=== PATIENT | female | born 1950 | race Caucasian/White ===

== ENCOUNTER → 2016-04-19 | Outpatient (REF) | payer OTHER ==
[2016-04-19 16:58] LABS: ALBUMIN 4.3 GM/DL (3.2-5.2); ALBUMIN/GLOBULIN RATIO 1.43 (1.00-1.93); ALKALINE PHOSPHATASE 65 U/L (45-117); ALT/SGPT 40 U/L (12-78); ANION GAP 9 MEQ/L (8-16); AST/SGOT 25 U/L (15-37); BILIRUBIN,TOTAL 0.4 MG/DL (0.2-1.0); BLOOD UREA NITROGEN 16 MG/DL (7-18); CALCIUM LEVEL 9.1 MG/DL (8.8-10.2); CARBON DIOXIDE LEVEL 28 MEQ/L (21-32); CHLORIDE LEVEL 103 MEQ/L (98-107); CHOLESTEROL LEVEL 235 MG/DL (<200); CREATININE FOR GFR 0.65 MG/DL (0.55-1.02); GLOMERULAR FILTRATION RATE > 60.0 (>45); GLUCOSE, FASTING 101 MG/DL (80-110); POTASSIUM SERUM 4.3 MEQ/L (3.5-5.1); SODIUM LEVEL 140 MEQ/L (136-145); TOTAL PROTEIN 7.3 GM/DL (6.4-8.2); TRIGLYCERIDES LEVEL 72 MG/DL (<150)
== END ==
LOC: M SFHCCLAY 08:53
PROVIDERS: ATTEND Family Medicine
DX: I10 Essential (primary) hypertension (principal)

== ENCOUNTER → 2016-06-21 | Outpatient (CLI) | payer OTHER ==
--- NOTE | 2016-06-22 03:12 | REP ---
Clinical: Superficial wound. Technique: AP and lateral views of the left tibia / fibula. Findings: Age-related degenerative changes at the knee and ankle joint noted. Small calcaneal heal spur identified. No acute fracture dislocation. Surrounding soft tissues unremarkable. Impression: Age-related degenerative changes. Signed by Jose Keith MD 06/22/2016 03:03 A
== END ==
LOC: M CLY 07:45
PROVIDERS: ATTEND Family Medicine
DX: S81.802D Unspecified open wound, left lower leg, subsequent encounter (principal); M17.10 Unilateral primary osteoarthritis, unspecified knee

== ENCOUNTER → 2016-11-02 | Outpatient (REF) | payer OTHER ==
[2016-11-02 11:56] LABS: ANION GAP 8 MEQ/L (8-16); BLOOD UREA NITROGEN 16 MG/DL (7-18); CALCIUM LEVEL 9.7 MG/DL (8.8-10.2); CARBON DIOXIDE LEVEL 30 MEQ/L (21-32); CHLORIDE LEVEL 102 MEQ/L (98-107); CREATININE FOR GFR 0.58 MG/DL (0.55-1.02); GLOMERULAR FILTRATION RATE > 60.0 (>45); GLUCOSE, FASTING 106 MG/DL (80-110); POTASSIUM SERUM 4.4 MEQ/L (3.5-5.1); SODIUM LEVEL 140 MEQ/L (136-145)
== END ==
LOC: M SFHCCLAY 08:56
PROVIDERS: ATTEND Family Medicine
DX: I10 Essential (primary) hypertension (principal)

== ENCOUNTER → 2017-02-08 | Outpatient (REF) | payer OTHER ==
[2017-02-08 11:43] LABS: ALBUMIN 4.4 GM/DL (3.2-5.2); ALBUMIN/GLOBULIN RATIO 1.29 (1.00-1.93); ALKALINE PHOSPHATASE 62 U/L (45-117); ALT/SGPT 29 U/L (12-78); ANION GAP 8 MEQ/L (8-16); AST/SGOT 22 U/L (7-37); BILIRUBIN,TOTAL 0.6 MG/DL (0.2-1.0); BLOOD UREA NITROGEN 16 MG/DL (7-18); CALCIUM LEVEL 9.5 MG/DL (8.8-10.2); CARBON DIOXIDE LEVEL 30 MEQ/L (21-32); CHLORIDE LEVEL 101 MEQ/L (98-107); CHOLESTEROL LEVEL 279 MG/DL (<200); CREATININE FOR GFR 0.66 MG/DL (0.55-1.02); GLOMERULAR FILTRATION RATE > 60.0 (>45); GLUCOSE, FASTING 96 MG/DL (80-110); POTASSIUM SERUM 3.9 MEQ/L (3.5-5.1); SODIUM LEVEL 139 MEQ/L (136-145); TOTAL PROTEIN 7.8 GM/DL (6.4-8.2); TRIGLYCERIDES LEVEL 105 MG/DL (<150)
== END ==
LOC: M SFHCCLAY 08:33
PROVIDERS: ATTEND Family Medicine
DX: E78.2 Mixed hyperlipidemia (principal); I10 Essential (primary) hypertension

== ENCOUNTER → 2018-01-23 | Outpatient (REF) | payer MEDICARE, MEDICAID ==
[2018-01-23 18:03] LABS: BASO % 0.5 % (0.0-1.0); EOS # 0.1 10^3/uL (0.0-0.50); EOS % 2.6 % (0.0-3.0); HEMATOCRIT 38.1 % (36.0-47.0); HEMOGLOBIN 12.4 g/dl (12.0-15.5); IMMATURE GRANULOCYTE % 0.5 % (0-3.0); LYMPH # 1.7 10^3/uL (1.5-4.5); MEAN CORPUSCULAR HEMOGLOBIN 31.3 pg (27.0-33.0); MEAN CORPUSCULAR HGB CONC 32.5 g/dl (32.0-36.5); MEAN CORPUSCULAR VOLUME 96.2 fl (80.0-96.0); MONO # 0.5 10^3/uL (0.0-0.8); MONO % 11.3 % (0.0-5.0); NEUTROPHILS # 1.9 10^3/uL (1.8-7.7); NEUTROPHILS % 45.1 % (36.0-66.0); PLATELET COUNT, AUTOMATED 257 10^3/uL (150-450); RED BLOOD COUNT 3.96 10^6/uL (4.00-5.40); RED CELL DISTRIBUTION WIDTH 12.8 % (11.5-14.5); WHITE BLOOD COUNT 4.2 10^3/uL (4.0-10.0)
[2018-01-23 18:11] LABS: ALBUMIN 4.2 GM/DL (3.2-5.2); ALKALINE PHOSPHATASE 68 U/L (45-117); ALT/SGPT 29 U/L (12-78); ANION GAP 8 MEQ/L (8-16); AST/SGOT 18 U/L (7-37); BILIRUBIN,TOTAL 0.4 MG/DL (0.2-1.0); BLOOD UREA NITROGEN 14 MG/DL (7-18); CALCIUM LEVEL 8.8 MG/DL (8.8-10.2); CARBON DIOXIDE LEVEL 28 MEQ/L (21-32); CHLORIDE LEVEL 103 MEQ/L (98-107); CHOLESTEROL LEVEL 263 MG/DL (<200); CHOLESTEROL RISK RATIO 3.506 (<5); CREATININE FOR GFR 0.66 MG/DL (0.55-1.30); GLOMERULAR FILTRATION RATE > 60.0 (>45); GLUCOSE, FASTING 93 MG/DL (70-100); HDL CHOLESTEROL 75 MG/DL (>40); LDL CHOLESTEROL 173 MG/DL (<100); NON-HDL-C 188 MG/DL; POTASSIUM SERUM 4.2 MEQ/L (3.5-5.1); SODIUM LEVEL 139 MEQ/L (136-145); TOTAL PROTEIN 7.2 GM/DL (6.4-8.2); TRIGLYCERIDES LEVEL 76 MG/DL (<150)
== END ==
LOC: M SFHCCLAY 09:29
DX: I10 Essential (primary) hypertension (principal); E78.2 Mixed hyperlipidemia
CPT/HCPCS: 80053

== ENCOUNTER → 2018-11-27 | Outpatient (REF) | payer MEDICARE, MEDICAID ==
[2018-11-27 10:57] LABS: ALBUMIN 4.2 GM/DL (3.2-5.2); ALT/SGPT 33 U/L (12-78); BILIRUBIN,TOTAL 0.5 MG/DL (0.2-1.0); BLOOD UREA NITROGEN 15 MG/DL (7-18); CALCIUM LEVEL 9.5 MG/DL (8.8-10.2); CARBON DIOXIDE LEVEL 30 MEQ/L (21-32); CHLORIDE LEVEL 105 MEQ/L (98-107); CHOLESTEROL LEVEL 227 MG/DL (<200); CHOLESTEROL RISK RATIO 2.802 (<5); GLOMERULAR FILTRATION RATE > 60.0 (>45); GLUCOSE, FASTING 95 MG/DL (70-100); HDL CHOLESTEROL 81 MG/DL (>40); LDL CHOLESTEROL 133 MG/DL (<100); NON-HDL-C 146 MG/DL; POTASSIUM SERUM 4.3 MEQ/L (3.5-5.1); SODIUM LEVEL 141 MEQ/L (136-145); TOTAL PROTEIN 7.3 GM/DL (6.4-8.2); TRIGLYCERIDES LEVEL 63 MG/DL (<150)
== END ==
LOC: M SFHCCLAY 08:53
PROVIDERS: ATTEND Family Medicine
DX: E78.2 Mixed hyperlipidemia (principal)
CPT/HCPCS: 80053; 80061; G0463

== ENCOUNTER → 2019-07-23 | Outpatient (CLI) | payer MEDICARE, MEDICAID ==
--- NOTE | 2019-07-24 01:50 | REP ---
Clinical: Bilateral knee pain. Technique: AP, lateral, bilateral oblique and sunrise views of the right and left knee. Findings: Right knee demonstrates moderate tricompartmental osteoarthritic degenerative changes including subchondral sclerosis, joint space narrowing, and marginal osteophytosis. Lateral view suggest the possibility of small suprapatellar effusion. No acute fracture or dislocation. Left knee demonstrates early moderate tricompartmental osteoarthritic degenerative changes including subchondral sclerosis, joint space narrowing, and marginal early osteophytosis. Findings most pronounced at the patellofemoral joint space on sunrise view. Small suprapatellar effusion cannot be excluded. No acute fracture or dislocation. Impression: Bilateral tricompartmental osteoarthritic degenerative changes (right greater than left). Electronically Signed by Jose Keith MD 07/24/2019 01:41 A
== END ==
LOC: M CLY 14:58
PROVIDERS: ATTEND Family Medicine
DX: M17.0 Bilateral primary osteoarthritis of knee (principal); M25.561 Pain in right knee; M25.562 Pain in left knee
CPT/HCPCS: 73564; G0463

== ENCOUNTER → 2020-07-22 | Outpatient (REF) | payer OTHER, MEDICAID ==
[2020-07-22 17:27] LABS: BASO % 0.7 % (0.0-1.0); EOS # 0.1 10^3/uL (0.0-0.5); EOS % 1.5 % (0.0-3.0); HEMATOCRIT 40.2 % (36.0-47.0); HEMOGLOBIN 12.9 g/dl (12.0-15.5); LYMPH # 1.6 10^3/uL (1.5-5.0); LYMPH % 38.7 % (24.0-44.0); MEAN CORPUSCULAR HEMOGLOBIN 31.3 pg (27.0-33.0); MEAN CORPUSCULAR HGB CONC 32.1 g/dl (32.0-36.5); MEAN CORPUSCULAR VOLUME 97.6 fl (80.0-96.0); MONO # 0.4 10^3/uL (0.0-0.8); MONO % 8.9 % (2.0-8.0); PLATELET COUNT, AUTOMATED 278 10^3/uL (150-450); RED BLOOD COUNT 4.12 10^6/uL (4.00-5.40); WHITE BLOOD COUNT 4.1 10^3/uL (4.0-10.0)
[2020-07-22 17:40] LABS: ALBUMIN 4.3 GM/DL (3.2-5.2); ALT/SGPT 33 U/L (12-78); BILIRUBIN,TOTAL 0.4 MG/DL (0.2-1.0); BLOOD UREA NITROGEN 18 MG/DL (7-18); CALCIUM LEVEL 10.5 MG/DL (8.8-10.2); CARBON DIOXIDE LEVEL 28 MEQ/L (21-32); CHLORIDE LEVEL 104 MEQ/L (98-107); CHOLESTEROL LEVEL 245 MG/DL (<200); CHOLESTEROL RISK RATIO 2.987 (<5); CREATININE FOR GFR 0.61 MG/DL (0.55-1.30); GLOMERULAR FILTRATION RATE > 60.0 (>45); GLUCOSE, FASTING 103 MG/DL (70-100); HDL CHOLESTEROL 82 MG/DL (>40); LDL CHOLESTEROL 148 MG/DL (<100); NON-HDL-C 163 MG/DL; POTASSIUM SERUM 4.4 MEQ/L (3.5-5.1); RHEUMATOID FACTOR QUANT < 10.0 IU/ML (<15.0); SODIUM LEVEL 138 MEQ/L (136-145); TOTAL PROTEIN 7.6 GM/DL (6.4-8.2); TRIGLYCERIDES LEVEL 77 MG/DL (<150)
[2020-07-22 17:44] LABS: VITAMIN B12 LEVEL 727 PG/ML (247-911)
[2020-07-22 17:46] LABS: FOLATE > 24.0 NG/ML (>5.4)
[2020-07-22 18:04] LABS: ERYTHROCYTE SEDIMENTATION RATE 8 mm/hr (0-30)
[2020-07-25 00:07] LABS: ANA (HEP2) Negative (.); CYCLIC CITRULLINATED PEPTIDE 4 units (0-19); Lyme Disease IgG/IgM Antibodie <0.91 ISR (0.00-0.90); Lyme Disease IgM Ab Quantitati <0.80 index (0.00-0.79)
== END ==
LOC: M SFHCCLAY 10:05
PROVIDERS: ATTEND Family Medicine
DX: E78.2 Mixed hyperlipidemia (principal); I10 Essential (primary) hypertension; M25.561 Pain in right knee; M25.562 Pain in left knee; G62.9 Polyneuropathy, unspecified
CPT/HCPCS: 80053; 80061; 82607; 82746; 85025; 85652; 86038; 86140; 86200; 86431; 86617; G0463

== ENCOUNTER 2020-12-24 13:04 | Inpatient (IN) | payer OTHER, MEDICAID ==
[~2020-12-24] VITALS: Ht 167.6 cm; Wt 70.1 kg
[2020-12-24] MEDS ORDERED: REST0.05 (13:15)
--- OUTSIDE RECORDS SUMMARY | 2020-12-24 13:15 | CCD ---
Author Author [facility] Organization [facility] Address Unknown Phone Unavailable Care Team Providers Care Filling Station Attendant Name Role Phone Erika, Sonal STANTONP-C Unavailable Unavailabl e Erika, Sonal STANTONP-C Unavailable Unavailabl e Erika, Brianforeignbruce STANTONP-C Unavailable Unavailabl e Erika, Sonal WOO-C Unavailable Unavailabl e Erika, Sonal STANTONP-C Unavailable Unavailabl e Erika, Yaminibruce STANTONP-C Unavailable Unavailabl e Erika, Brianforeignbruce STANTONP-C Unavailable Unavailabl e Erika, Sonal WOO-C Unavailable Unavailabl e Erika, Sonal STANTONP-C Unavailable Unavailabl e Erika, Sonal STANTONP-C Unavailable Unavailabl e Erika, Sonal MULTANIC Unavailable Unavailabl e Erika, Reginah W Gabi DRAG SAWYER-C Unavailable Unavailabl e Erika, Sonal W Gabi DRAG SAWYER-C Unavailable Unavailabl e Erika, Sonal W Gabi DRAG SAWYER-C Unavailable Unavailabl e Erika, Regmarlon W Gabi DRAG SAWYER-C Unavailable Unavailabl e Erika, Regmarlon W Gabi DRAG SAWYER-C Unavailable Unavailabl e Erika, Regmarlon W Gabi DRAG SAWYER-C Unavailable Unavailabl e Erika, Reginabruce W Gabi DRAG SAWYER-C Unavailable Unavailabl e Erika, Reginabruce W Gabi DRAG SAWYER-C Unavailable Unavailabl e Erika, Reginabruce W Gabi DRAG SAWYER-C Unavailable Unavailabl e Erika, Brianinabruce W Gabi DRAG SAWYER-C Unavailable Unavailabl e Erika, Sonal W Gabi DRAG SAWYER-C Unavailable Unavailabl e Erika, Sonal W Gabi DRAG SAWYER-C Unavailable Unavailabl e Erkia, Sonal W Gabi DRAG SAWYER-C Unavailable Unavailabl e Erika, Sonal W Gabi DRAG SAWYER-C Unavailable Unavailabl e Erika, Regmarlon W Gabi DRAG SAWYER-C Unavailable Unavailabl e Erika, Sonal W Gabi DRAG SAWYER-C Unavailable Unavailabl e Erika, Sonal W Gabi DRAG SAWYER-C Unavailable Unavailabl e Erika, Regmarlon W Gabi DRAG SAWYER-C Unavailable Unavailabl e Erika, Sonal W Gabi DRAG SAWYER-C Unavailable Unavailabl e Erika, Sonal W Gabi DRAG SAWYER-C Unavailable Unavailabl e Erika, Reginabruce W Gabi DRAG SAWYER-C Unavailable Unavailabl e Holguin, Yoly Unavailable Unavailable Holguin, Yoly Unavailable Unavailable Holguin, Yoly Unavailable Unavailable Holguin, Yoly Unavailable Unavailable Holguin, Yoly Unavailable Unavailable Holguin, Yoly Unavailable Unavailable Holguin, Yoly Unavailable Unavailable ARANDA, P TRUNG PA-C Unavailable Unavailable ARANDA, P TRUNG PA-C Unavailable Unavailable ARANDA, P TRUNG PA-C Unavailable Unavailable MANOJ, P TRUNG PA-C Unavailable Unavailable [facility] SH[facility] BLOCK HAND Unavailable Unavailable [facility] BLOCK HAND Unavailable Unavailable SHAH, [facility] MARILEE BLOCK HAND Unavailable Unavailable SHAH, [facility] MARILEE BLOCK HAND Unavailable Unavailable SHAH, [facility] MAR[facility]E BLOCK HAND Unavailable Unavailable SHAH, [facility] MAR[facility]E BLOCK HAND Unavailable Unavailable SHAH, [facility] MARILEE BLOCK HAND Unavailable Unavailable SHAH, [facility] MARILEE BLOCK HAND Unavailable Unavailable SHAH, [facility] MARILEE BLOCK HAND Unavailable Unavailable SHAH, [facility] MARILEE BLOCK HAND Unavailable Unavailable SHAH, [facility] MARILEE BLOCK HAND Unavailable Unavailable SHAH, [facility] MARILEE BLOCK HAND Unavailable Unavailable SHAH, [facility] MARILEE BLOCK HAND Unavailable Unavailable SHAH, [facility] MARILEE BLOCK HAND Unavailable Unavailable SHAH, [facility] MARILEE BLOCK HAND Unavailable Unavailable SHAH, [facility] MARILEE BLOCK HAND Unavailable Unavailable SHAH, [facility] MARILEE BLOCK HAND Unavailable Unavailable SHAH, [facility] MARILEE BLOCK HAND Unavailable Unavailable SHAH, [facility] MARILEE BLOCK HAND Unavailable Unavailable SHAH, [facility] MARILEE BLOCK HAND Unavailable Unavailable SHAH, [facility] MARILEE BLOCK HAND Unavailable Unavailable SHAH, [facility] MARILEE BLOCK HAND Unavailable Unavailable SHAH, [facility] MARILEE BLOCK HAND Unavailable Unavailable SHAH, [facility] MARILEE BLOCK HAND Unavailable Unavailable SHAH, [facility] MARILEE BLOCK HAND Unavailable Unavailable SHAH, [facility] MARILEE BLOCK HAND Unavailable Unavailable SHAH, [facility] MARILEE BLOCK HAND Unavailable Unavailable SHAH, [facility] MARILEE BLOCK HAND Unavailable Unavailable SHAH, [facility] MARILEE BLOCK HAND Unavailable Unavailable SHAH, [facility] MARILEE BLOCK HAND Unavailable Unavailable SHAH, [facility] MARILEE BLOCK HAND Unavailable Unavailable SHAH, [facility] MARILEE BLOCK HAND Unavailable Unavailable SHAH, [facility] MARILEE BLOCK HAND Unavailable Unavailable SHAH, [facility] MARILEE BLOCK HAND Unavailable Unavailable SHAH, [facility] MARILEE BLOCK HAND Unavailable Unavailable SHAH, [facility] MARILEE BLOCK HAND Unavailable Unavailable SHAH, [facility] MARILEE BLOCK HAND Unavailable Unavailable SHAH, [facility] MARILEE BLOCK HAND Unavailable Unavailable SHAH, [facility] MARILEE BLOCK HAND Unavailable Unavailable SHAH, [facility] MARILEE BLOCK HAND Unavailable Unavailable SHAH, [facility] MARILEE BLOCK HAND Unavailable Unavailable SHAH, [facility] MARILEE BLOCK HAND Unavailable Unavailable SHAH, [facility] MARILEE BLOCK HAND Unavailable Unavailable SHAH, [facility] MARILEE BLOCK HAND Unavailable Unavailable SHAH, [facility] MARILEE BLOCK HAND Unavailable Unavailable SAHH, [facility] MARILEE BLOCK HAND Unavailable Unavailable SHAH, [facility] MARILEE BLOCK HAND Unavailable Unavailable SHAH, [facility] MARILEE BLOCK HAND Unavailable Unavailable SHAH, [facility] MARILEE BLOCK HAND Unavailable Unavailable SHAH, [facility] MARILEE BLOCK HAND Unavailable Unavailable SARAH ARANDA Unavailable Unavailable Pablo Penn, Milan Ordonez MD, FACS Unavailable Unavailable Pablo Penn, Milan Ordonez MD, FACS Unavailable Unavailable Milan Chen MD, FACS Unavailable Unavailable Milan Chen MD, FACS Unavailable Unavailable Milan Chen MD, FACS Unavailable Unavailable Milan Chen MD, FACS Unavailable Unavailable Milan Chen MD, FACS Unavailable Unavailable Shah Penn, Milan Ordonez MD, FACS Unavailable Unavailable Shah Penn, Milan Ordonez MD, FACS Unavailable Unavailable Shah Penn, Milan Odronez MD, FACS Unavailable Unavailable Shah Penn, Milan Ordonez MD, FACS Unavailable Unavailable Shah Penn, Milan Ordonez MD, FACS Unavailable Unavailable Shah Penn, Milan Ordonez MD, FACS Unavailable Unavailable Shah Penn, Milan Ordonez MD, FACS Unavailable Unavailable Shah Penn, Milan Ordonez MD, FACS Unavailable Unavailable Shah Penn, Milan Ordonez MD, FACS Unavailable Unavailable Shah Penn, Milan Ordonez MD, FACS Unavailable Unavailable Shah Penn, Milan Ordonez MD, FACS Unavailable Unavailable Shah Penn, Milan Ordonez MD, FACS Unavailable Unavailable Shah Penn, Milan Ordonez MD, FACS Unavailable Unavailable Shah Penn, Milan Ordonez MD, FACS Unavailable Unavailable Shah Penn, Milan Ordonez MD, FACS Unavailable Unavailable Shah Penn, Milan Ordonez MD, FACS Unavailable Unavailable Shah Penn, Milan Ordonez MD, FACS Unavailable Unavailable Shah Penn, Milan Ordonez MD, FACS Unavailable Unavailable Shah Penn, Milan Ordonez MD, FACS Unavailable Unavailable Shah Penn, Milan Ordonez MD, FACS Unavailable Unavailable Shah Penn, Milan Ordonez MD, FACS Unavailable Unavailable Shah Penn, Milan Ordonez MD, FACS Unavailable Unavailable Shah Penn, Milan Ordonez MD, FACS Unavailable Unavailable Shah Penn, Milan Ordonez MD, FACS Unavailable Unavailable Shah Penn, Milan Ordonez MD, FACS Unavailable Unavailable Shah Penn, Milan Ordonez MD, FACS Unavailable Unavailable Shah Penn, Milan Ordonez MD, FACS Unavailable Unavailable Shah Penn, Milan Ordonez MD, FACS Unavailable Unavailable Shah Penn, Milan Ordonez MD, FACS Unavailable Unavailable Shah Penn, Milan Ordonez MD, FACS Unavailable Unavailable Shah Penn, Milan Ordonez MD, FACS Unavailable Unavailable Shah Penn, Milan Ordonez MD, FACS Unavailable Unavailable HUIZENGA, Eloisa LUNA DO Unavailable Unavailable HUIZENGA, Eloisa JOON DO Unavailable Unavailable HUIZENGA, D JEREMY DO Unavailable Unavailable HUIZENGA, D JEREMY DO Unavailable Unavailable HUIZENGA, D JEREMY DO Unavailable Unavailable HUIZENGA, D JEREMY DO Unavailable Unavailable HUIZENGA, D JEREMY DO Unavailable Unavailable HUIZENGA, D JEREMY DO Unavailable Unavailable HUIZENGA, D JEREMY DO Unavailable Unavailable HUIZENGA, D JEREMY DO Unavailable Unavailable HUIZENGA, D JEREMY DO Unavailable Unavailable HUIZENGA, D JEREMY DO Unavailable Unavailable HUIZENGA, D JEREMY DO Unavailable Unavailable HUIZENGA, D JEREMY DO Unavailable Unavailable HUIZENGA, D JEREMY DO Unavailable Unavailable HUIZENGA, D JEREMY DO Unavailable Unavailable HUIZENGA, D JEREMY DO Unavailable Unavailable HUIZENGA, Eloisa LUNA DO Unavailable Unavailable HUIZENGA, Eloisa LUNA DO Unavailable Unavailable HUIZENGA, Eloisa LUNA DO Unavailable Unavailable HUIZENGA, Eloisa LUNA DO Unavailable Unavailable HUIZENGA, Eloisa LUNA DO Unavailable Unavailable HUIZENGA, Eloisa LUNA DO Unavailable Unavailable HUIZENGA, Eloisa LUNA DO Unavailable Unavailable HUIZENGA, Eloisa LUNA DO Unavailable Unavailable HUIZENGA, Eloisa LUNA DO Unavailable Unavailable HUIZENGA, Eloisa LUNA DO Unavailable Unavailable HUIZENGA, Eloisa LUNA DO Unavailable Unavailable HUIZENGA, Eloisa LUNA DO Unavailable Unavailable HUIZENGA, Eloisa LUNA DO Unavailable Unavailable HUIZENGA, Eloisa LUNA DO Unavailable Unavailable HUIZENGA, Eloisa LUNA DO Unavailable Unavailable HUIZENGA, Eloisa LUNA DO Unavailable Unavailable HUIZENGA, Eloisa LUNA DO Unavailable Unavailable HUIZENGA, Eloisa LUNA DO Unavailable Unavailable HUIZENGA, Eloisa LUNA DO Unavailable Unavailable HUIZENGA, Eloisa LUNA DO Unavailable Unavailable HUIZENGA, Eloisa LUNA DO Unavailable Unavailable HUIZENGA, Eloisa LUNA DO Unavailable Unavailable HUIZENGA, Eloisa LUNA DO Unavailable Unavailable HUIZENGA, Eloisa LUNA DO Unavailable Unavailable HUIZENGA, Eloisa LUNA DO Unavailable Unavailable HUIZENGA, Eloisa LUNA DO Unavailable Unavailable HUIZENGA, Eloisa LUNA DO Unavailable Unavailable HUIZENGA, Eloisa LUNA DO Unavailable Unavailable HUIZENGA, Eloisa LUNA DO Unavailable Unavailable HUIZENGA, Eloisa LUNA DO Unavailable Unavailable HUIZENGA, Eloisa LUNA DO Unavailable Unavailable HUIZENGA, Eloisa LUNA DO Unavailable Unavailable HUIZENGA, Eloisa LUNA DO Unavailable Unavailable HUIZENGA, Eloisa LUNA DO Unavailable Unavailable HUIZENGA, Eloisa LUNA DO Unavailable Unavailable HUIZENGA, Eloisa ULNA DO Unavailable Unavailable HUIZENGA, Eloisa LUNA DO Unavailable Unavailable HUIZENGA, Eloisa LUNA DO Unavailable Unavailable HUIZENGA, Eloisa LUNA DO Unavailable Unavailable HUIZENGA, Eloisa LUNA DO Unavailable Unavailable HUIZENGA, Eloisa LUNA DO Unavailable Unavailable HUIZENGA, Eloisa LUNA DO Unavailable Unavailable HUIZENGA, Eloisa LUNA DO Unavailable Unavailable HUIZENGA, Eloisa LUNA DO Unavailable Unavailable HUIZENGA, D JEREMY DO Unavailable Unavailable HUIZENGA, D JEREMY DO Unavailable Unavailable HUIZENGA, D JEREMY DO Unavailable Unavailable HUIZENGA, D JEREMY DO Unavailable Unavailable HUIZENGA, D JEREMY DO Unavailable Unavailable HUIZENGA, D JEREMY DO Unavailable Unavailable HUIZENGA, D JEREMY DO Unavailable Unavailable HUIZENGA, D JEREMY DO Unavailable Unavailable HUIZENGA, D JEREMY DO Unavailable Unavailable HUIZENGA, D JEREMY DO Unavailable Unavailable HUIZENGA, D JEREMY DO Unavailable Unavailable HUIZENGA, D JEREMY DO Unavailable Unavailable HUIZENGA, D JEREMY DO Unavailable Unavailable HUIZENGA, D JEREMY DO Unavailable Unavailable HUIZENGA, D JEREMY DO Unavailable Unavailable HUIZENGA, D JEREMY DO Unavailable Unavailable Holguin, Yoly Unavailable Unavailable Holguin, Yoly Unavailable Unavailable Holguin, Yoly Unavailable Unavailable Holguin, Yoly Unavailable Unavailable Holguin, Yoly Unavailable Unavailable [place], Rachell Dustin DRAG SAWYER Unavailable Unavailable [place], Rachell Dustin DRAG SAWYER Unavailable Unavailable [place], Rachell Dustin DRAG SAWYER Unavailable Unavailable Chris, Rachell Dustin DRAG SAWYER Unavailable Unavailable [place], Rachell Dustin DRAG SAWYER Unavailable Unavailable Chris, Rachell Dustin DRAG SAWYER Unavailable Unavailable [place], Rachell Dustin DRAG SAWYER Unavailable Unavailable Chris, Rachell Dustin DRAG SAWYER Unavailable Unavailable [place], Rachell Dustin DRAG SAWYER Unavailable Unavailable [place], Rachell Dustin DRAG SAWYER Unavailable Unavailable [place], Rachell Dustin DRAG SAWYER Unavailable Unavailable [place], Rachell Dustin DRAG SAWYER Unavailable Unavailable Chris, Rachell Dustin DRAG SAWYER Unavailable Unavailable [place], Rachell Dustin DRAG SAWYER Unavailable Unavailable RUSSELL, W AMARJIT PA Unavailable Unavailable RUSSELL, W AMARJIT PA Unavailable Unavailable RUSSELL, W AMARJIT PA Unavailable Unavailable RUSSELL, W AMARJIT PA Unavailable Unavailable RUSSELL, W AMARJIT PA Unavailable Unavailable RUSSELL, W AMARJIT PA Unavailable Unavailable RUSSELL, W AMARJIT PA Unavailable Unavailable RUSSELL, W AMARJIT PA Unavailable Unavailable RUSSELL, W AMARJIT PA Unavailable Unavailable RUSSELL, W AMARJIT PA Unavailable Unavailable RUSSELL, W AMARJIT PA Unavailable Unavailable RUSSELL, W AMARJIT PA Unavailable Unavailable RUSSELL, W AMARJIT PA Unavailable Unavailable RUSSELL, W AMARJIT PA Unavailable Unavailable RUSSELL, W AMARJIT PA Unavailable Unavailable RUSSELL, W AMARJIT PA Unavailable Unavailable RUSSELL, W AMARJIT PA Unavailable Unavailable RUSSELL, W AMARJIT PA Unavailable Unavailable RUSSELL, W AMARJIT PA Unavailable Unavailable RUSSELL, W AMARJIT PA Unavailable Unavailable RUSSELL, W AMARJIT PA Unavailable Unavailable RUSSELL, W AMARJIT PA Unavailable Unavailable RUSSELL, W AMARJIT PA Unavailable Unavailable RUSSELL, W AMARJIT PA Unavailable Unavailable RUSSELL, W AMARJIT PA Unavailable Unavailable RUSSELL, W AMARJIT PA Unavailable Unavailable RUSSELL, W AMARJIT PA Unavailable Unavailable RUSSELL, W AMARJIT PA Unavailable Unavailable RUSSELL, W AMARJIT PA Unavailable Unavailable RUSSELL, W AMARJIT PA Unavailable Unavailable RUSSELL, W AMARJIT PA Unavailable Unavailable RUSSELL, W AMARJIT PA Unavailable Unavailable RUSSELL, W AMARJIT PA Unavailable Unavailable RUSSELL, W AMARJIT PA Unavailable Unavailable RUSSELL, W AMARJIT PA Unavailable Unavailable RUSSELL, W AMARJIT PA Unavailable Unavailable RUSSELL, W AMARJIT PA Unavailable Unavailable RUSSELL, W AMARJIT PA Unavailable Unavailable RUSSELL, W AMARJIT PA Unavailable Unavailable RUSSELL, W AMARJIT PA Unavailable Unavailable RUSSELL, W AMARJIT PA Unavailable Unavailable RUSSELL, W AMARJIT PA Unavailable Unavailable RUSSELL, W AMARJIT PA Unavailable Unavailable RUSSELL, W AMARJIT PA Unavailable Unavailable MURALI, ROBERT JOMAR PA Unavailable Unavailable MURALI, ROBERT JOMAR PA Unavailable Unavailable MURALI, ROBERT JOMAR PA Unavailable Unavailable MURALI, ROBERT JOMAR PA Unavailable Unavailable MURALI, ROBERT JOMAR PA Unavailable Unavailable MURALI, ROBERT JOMAR PA Unavailable Unavailable MURALI, ROBERT JOMAR PA Unavailable Unavailable MURALI, ROBERT JOMAR PA Unavailable Unavailable MURALI, ROBERT JOMAR PA Unavailable Unavailable MURALI, ROBERT JOMAR PA Unavailable Unavailable MURALI, ROBERT JOMAR PA Unavailable Unavailable MURALI, ROBERT JOMAR PA Unavailable Unavailable MURALI, ROBERT JOMAR PA Unavailable Unavailable MURALI, ROBERT JOMAR PA Unavailable Unavailable MURALI, ROBERT JOMAR PA Unavailable Unavailable MURALI, ROBERT JOMAR PA Unavailable Unavailable MURALI, ROBERT JOMAR PA Unavailable Unavailable MURALI, ROBERT JOMAR PA Unavailable Unavailable MURALI, ROBERT JOMAR PA Unavailable Unavailable MURALI, ROBERT JOMAR PA Unavailable Unavailable MURALI, ROBERT JOMAR PA Unavailable Unavailable MURALI, ROBERT JOMAR PA Unavailable Unavailable Re-disclosure Warning The records that you are about to access may contain information from federally-assisted alcohol or drug abuse programs. If such information is present, then the following federally mandated warning applies: This information has been disclosed to you from records protected by federal confidentiality rules (42 CFR part 2). The federal rules prohibit you from making any further disclosure of this information unless further disclosure is expressly permitted by the written consent of the person to whom it pertains or as otherwise permitted by 42 CFR part 2. A general authorization for the release of medical or other information is NOT sufficient for this purpose. The Federal rules restrict any use of the information to criminally investigate or prosecute any alcohol or drug abuse patient.The records that you are about to access may contain highly sensitive health information, the redisclosure of which is protected by Article 27-F of the [facility] Public Health law. If you continue you may have access to information: Regarding HIV / AIDS; Provided by facilities licensed or operated by the [facility] Office of Mental Health; or Provided by the [facility] Office for People With Developmental Disabilities. If such information is present, then the following [facility] mandated warning applies: This information has been disclosed to you from confidential records which are protected by state law. State law prohibits you from making any further disclosure of this information without the specific written consent of the person to whom it pertains, or as otherwise permitted by law. Any unauthorized further disclosure in violation of state law may result in a fine or usp sentence or both. A general authorization for the release of medical or other information is NOT sufficient authorization for further disc losure. Family History Family Member Name Family Member Gender Family Member Status Date o f Status Description Data Source(s) Unknown Female Problem [facility] ([facility]) Encounters Encounter Providers Location Date Indications Data Source(s ) Outpatient Attender: Dustin WOO 12/24/2020 11:19:[address] [facility] Outpatient Attender: José Luis Penn MD, FACSRefer rer: JEREMY DAY DO EMERGENCY ROOM-LABOTHPROV 12/04/2020 12:12:00 PM EDT - 12/04/2020 12:12:[address] [facility] [place] [address] [facility] [place] [address] 08/04/2020 12:00:00 AM EDT eCW1 ([facility]) Outpatient [address] [facility] [place] [address] 07/22/2020 12:00:00 AM EDT eCW1 ([facility]) Outpatient Attender: JEREMY Stileser: JEREMY GARCIA DO 12/27/2019 10:00:00 AM [facility] Outpatient Attender: JEREMY DAY DO 06/2019 08:53:00 AM EST - 01/15/2020 01:11:00 PM [facility] Patient discharged. [place]patient [address] [facility] [address] 12/17/2019 12:00:00 AM EDT eCW1 ([facility]) Outpatient Attender: Yoly López aletha: Yoly HolguinReferrer: JEREMY DAY DO 05/24/2018 08:03:00 AM EDT - 05/24/2018 08:03:[address] [facility] Outpatient Attender: JEREMY Stileser: JEREMY GARCIA DO 05/24/2018 07:48:00 AM EDT - 05/24/2018 07:48:00 AM [facility] Emergency Attender: TRUNG Yates-CAttender: TRUNG ARANDAReferrer: JEREMY DAY DO EMERGENCY ROOM-ER 03/23/2018 10:42:00 AM EST - 03/23/2018 01:58:00 PM [facility] Emergency Attender: JOMAR CARRION PAReferrer: Milan DAY DO EMERGENCY ROOM-ER 10/21/2017 10:09:00 PM EDT - 10/21/2017 10:20:[address] [facility] Outpatient Attender: JEREMY Jacksonerrer: JEREMY GARCIA DO 12/14/2016 09:28:[address] [facility] Outpatient Attender: Gabi WOO-CReferrer: JEREMY WAGONER DO 01/09/2015 10:53:00 AM [facility] Outpatient Attender: Gabi WOO-CReferrer: JEREMY WAGONER DO 11/09/2013 01:28:[address] [facility] Emergency Attender: AMARJIT NICKERSONeferrer: JOHANNE SHAH NP EMERGENCY ROOM-ER 10/25/2013 11:11:00 AM EDT - 10/25/2013 01:44:[address] [facility] Immunizations Vaccine Date Status Description Data Source(s) COVID-19 dose #2 given elsewhere Unspecified 05/28/2020 10:0 2:00 AM EDT completed eCW1 ([facility]) COVID-19 dose #2 given elsewhere Unspecified 05/28/2020 10:0 2:00 AM EDT completed eCW1 ([facility]) COVID-19 VACCINE Moderna 05/28/2020 12:00:00 AM EDT completed [facility] Vaccine Series Complete: YESThis Data wa s Submitted to [facility] [employer]. COVID-19 VACCINE, MRNA-1273, LNP-S (MODERNA)/PF 05/28/2020 1 2:00:00 AM EDT completed [facility] COVID-19 dose #1 given elsewhere Unspecified 04/26/2020 10:0 1:00 AM EST completed eCW1 ([facility]) COVID-19 dose #1 given elsewhere Unspecified 04/26/2020 10:0 1:00 AM EST completed eCW1 ([facility]) COVID-19 VACCINE Moderna 04/26/2020 12:00:00 AM EST completed [facility] Vaccine Series Complete: NOThis Data was Submitted to [facility] [employer]. COVID-19 VACCINE, MRNA-1273, LNP-S (MODERNA)/PF 04/26/2020 1 2:00:00 AM EST completed [facility] Medications Medication Brand Name Start Date Product Form Dose Route Admi nistrative Instructions Pharmacy Instructions Status Indications Reaction Description Data Source(s) 1 % 12/02/2020 12:00:00 AM EDT drops,suspension 5 INSTILL 1 DROP IN THE LEFT EYE EVERY 4 HOURS INSTILL 1 DROP IN THE LEFT EYE EVERY 4 HOURS SOLD: [facility] 1 % 11/20/2020 12:00:00 AM EDT drops,suspension 5 INSTILL 1 DROP INTO THE LEFT EYE EVERY 2 HOURS INSTILL 1 DROP INTO THE LEFT EYE EVERY 2 HOURS SOLD: 11/20/2020 [facility] 0.05 % 03/13/2020 12:00:00 AM EST dropperette 60 APPLY 1 DROP INTO BOTH EYES 2 TIMES A DAY APPLY 1 DROP INTO BOTH EYES 2 TIMES A DAY SOLD: 03/14/2020 [facility] 0.05 % 03/13/2020 12:00:00 AM EST dropperette 60 APPLY 1 DROP INTO BOTH EYES 2 TIMES A DAY APPLY 1 DROP INTO BOTH EYES 2 TIMES A DAY SOLD: 09/05/2020 [facility] Physical Therapy evaluate and treat UNK 12/17/2019 12:00:00 AM EDT active Physical Therapy evaluate and tr eat eCW1 ([facility]) Insurance Providers Payer name Policy type / Coverage type Policy ID Covered alliance party ID Covered alliance party's relationship to alexander Policy [place] Plan Information [place] Purchase Plan F [id number] SELF [id number] [facility] [id number] SP [id number] [place] Medicaid/P/[facility] Commercial [id number] Self [id number] [place] [employer] MEDICAID [id number] S [id number] [place] Medicaid/P/P Commercial Medicaid [id number] Self M edicaid [place] Medicaid/CHP/P Commercial [id number] Self [id number] [place] [id number] S [id number] [place] [employer] MEDICAID [id number] S [id number] [facility] MEDICAID [id number] S [id number] [place] MEDICARE DIVISION [id number] S [id number] [place] [id number] S [id number] HU[employer]NA GOLD CLASSIC [id number] S [id number] [id number] SP [id number] [employer] GOLD [id number] SP [id number] [facility] O [id number] S [id number] MEDICAID [id number] S [id number] [place] [id number] SP [id number] [facility] [id number] SP [id number] MEDICAID [id number] SP [id number] ANSI-Not a Secondary Insurance [id number] ANSI-Medicaid [id number] ANSI-Medicare Part B [id number] ANSI-Commercial [id number] MEDICAID [id number] S [id number] [facility] MEDICARE DIVISION [id number] S [id number] MEDICARE [place] [id number] S [id number] MEDICARE [id number] SP [id number] ANSI-Medicaid [id number] ANSI-Medicare Part B [id number] ANSI-Commercial [id number] ANSI-Commercial [id number] ANSI-Commercial [id number] [place] [id number] SP [id number] [place] [employer] MEDICAID [facility] [id number] S [id number] [employer] PublicRelay [facility] Part B [id number] Self 2 [id number] [place] [place] [id number] S [id number] [employer] Insurance [facility] [facility] [id number] Self 2 [id number] [place] [employer] Medigap Part B [id number] Self [facility]ARE [facility] [id number] S [id number] O UNAVAILABLE UNAVAILA BLE [facility] [id number] S [id number] SELF PAY SP UNAVAILABLE S UNAVAILA BLE MEDICAID [facility] [id number] S [id number] [employer] G[employer] CLASSIC [id number] S [id number] SELF PAY UNAVAILABLE SP UNAVAILA BLE MEDICAID [id number] S [id number] MEDICAID [id number] S [id number] [facility] [id number] S [id number] MEDICAID [id number] S [id number] [employer] [id number] S [id number] Problems, Conditions, and Diagnoses Code Display Name Description Problem Type Effective Dates Data Source(s) Z00.00 Encounter for general adult medical examination without abnormal findings ENCNTR FOR GENERAL ADULT MEDICAL EXAM W/ Diagnosis 021 12:12:00 PM EDT 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, left eye RECURRENT ACUTE IRIDOCYCLITIS, LEFT EYE Diagnosis 12/04/2020 12:12:00 PM EDT [facility] Z12.31 Encounter for screening mammogram for ma lignant neoplasm of breast ENCNTR SCREEN MAMMOGRAM FOR MALIGNANT NEOPLASM OF BREAST Diagnosis 06/2019 10:00:00 AM [facility] M17.30 Unilateral post-traumatic osteoarthritis , unspecified knee UNILATERAL POST-TRAUMATIC OSTEOARTHRITIS, UNSPECIF Diagnosis 12/27/2019 08:21:00 AM [facility] M17.9 Osteoarthritis of knee, unspecified OSTEOARTHRIT IS OF KNEE, UNSPECIFIED Diagnosis 12/27/2019 08:21:00 AM [facility] M62.81 Muscle weakness (generalized) MUSCLE WEAKNESS (GENERAL IZED) Diagnosis 12/27/2019 08:21:00 AM [facility] G62.9 [id number] Neuropathy Problem 07/22/2020 12:00:00 AM ED T eCW1 ([facility]) Surgeries/Procedures No Information Results ID Date Data Source [id number] 12/11/2020 06:05:00 AM EDT [facility] Name Value Range Interpretation Code Description Data Caroline rce(s) Supporting Document(s) HLA B27 DISEASE ASSOCIATION Negative . [facility] HLA-B*27 ZonhdkuzZ20 allele interpretati on for all loci based on IMGT/HLAdatabase version 3.44This test was developed and its performance characteristicsdetermined by [employer]. It has not been cleared or approvedby the Food and Drug Administration.[facility]LA Lab CLIA ID Number [id number] test was performed using PCR (Polymerase ChainReaction)/SSOP (Sequence Specific Oligonucleotide Probes)technique. SBT (Sequence Based Typing) and/or SSP(Sequence Specific Primers) may be used as supplementalmethods when necessary. Please contact [facility] CustomerService at if you have any questions. Director of HLA Laboratory Dr Antolin More, PhDPerformed at: 2 - [facility] [place] [id number] [place], [place] [id number] Director: Antolin More PhD, Phone: [phone] ID Date Data Source [id number] 12/11/2020 06:05:00 AM EDT [facility] Name Value Range Interpretation Code Description Data Caroline rce(s) Supporting Document(s) HLA-B27 Negative [facility] HLA-B*27 EzzmyvqkA06 allele interpretati on for all loci based on IMGT/HLAdatabase version 3.44This test was developed and its performance characteristicsdetermined by [facility]. It has not been cleared or approvedby the Food and Drug Administration.[facility] CLIA ID Number [id number] This test was performed using PCR (Polymerase Chain Reaction)/SSOP(Sequence Specific Oligonucleotide Probes) technique. SBT (SequenceBased Typing) and/or SSP (Sequence Specific Primers) may be used assupplemental methods when necessary. Please contact [facility] CustomerService at if you have any questions. Director of HLA Laboratory Dr Antolin More, PhD ID Date Data Source [id number] 12/04/2020 01:30:00 PM EDT [facility] FA[facility] [phone] Name Value Range Interpretation Code Description Data Caroline rce(s) Supporting Document(s) ERYTHROCYTE SEDIMENTATION RATE 10 mm/hr 0-30 [facility] ID Date Data Source [id number] 12/04/2020 12:56:00 PM EDT [facility] FA[facility] [phone] Name Value Range Interpretation Code Description Data Caroline rce(s) Supporting Document(s) C REACTIVE PROTEIN 11.7 mg/L 0.0-3.0 [facility] ID Date Data Source [id number] 12/27/2019 12:48:00 PM EST [facility] DATE OF EXAMINATION: 12/27/2019 9:18 EST MAMMO SCREEN BILAT WITH CAD HISTORY: Screening Based on the personal and family history information your patient supplied atthe time of imaging, her lifetime risk of breast cancer estimated date by theTyrer-Cuzick model is 8%. If anything changes in the personal and/or familyhistory this percentage could increase or decrease. Currently, NCCN and ACSrecommended adjunctive breast MRI screening starting at age 30 for women with a> 20-25% lifetime risk of developing breast cancer. Comparison is made to prior study dated 05/24/2018. 2-D bilateral digital mammogram in the CC and MLO planes were performed withsupplemental 3-D tomosynthesis of both breasts. The images were analyzed through the latest version of the [employer] computer aideddiagnosis system. The patient states that her last clinical breast examination was not provided. Craniocaudal and oblique lateral views of the breasts were obtained. There arescattered areas of fibroglandular density. There is no dominant mass,suspicious clustered calcification, or architectural distortion. IMPRESSION: No mammographic evidence of malignancy. BIRAD 2 - Benign Findings, Routine Yearly Mammographic Follow-up recommended. 10-15% of cancers are not identified by mammography. This usually occurs whenthe mass is of the same radiographic density as the surrounding breast tissue,emphasizing the importance of breast self examination (BSE) and physicalexamination. A normal mammogram should not delay biopsy if a suspicious mass orabnormal findings are present upon physical examination. Electronically signed in PS360 by: Brianna Sinclair M.D. 12/27/2019 12:43 EST Name Value Range Interpretation Code Description Data Caroline rce(s) Supporting Document(s) Procedure Social History Code Duration Value Status Description Data Source(s ) Smoking 07/22/2020 12:00:00 AM EDT Never Smoker completed Never S moker eCW1 ([facility]) Smoking 07/22/2020 12:00:00 AM EDT Never Smoker completed Never S moker eCW1 ([facility]) Smoking 12/17/2019 12:00:00 AM EDT Never Smoker completed Never S moker eCW1 ([facility]) Vital Signs ID Date Data Source UNK Name Value Range Interpretation Code Description Data Source(s) Body weight 157.8 [lb_av] 157.8 [lb_av] eCW1 ([facility]) Body height [in_i] eCW1 ([facility]) Body mass index (BMI) [Ratio] 26.67 kg/m2 26.67 kg/m2 eCW1 ([facility]) Heart rate 68 /min 68 /min eCW1 ([facility]) Respiratory rate 16 /min 16 /min eCW1 ([facility] to [facility]) Body temperature 98.6 [degF] 98.6 [degF] eCW1 ( [facility]) Systolic blood pressure 186 mm[Hg] 186 mm[Hg] e CW1 ([facility]) Diastolic blood pressure 100 mm[Hg] 100 mm[Hg] eCW1 ([facility]) Body weight 150.8 [lb_av] 150.8 [lb_av] eCW1 ([facility]) Body height [in_i] eCW1 ([facility]) Body mass index (BMI) [Ratio] 25.48 kg/m2 25.48 kg/m2 eCW1 ([facility]) Heart rate 79 /min 79 /min eCW1 ([facility]) Respiratory rate 16 /min 16 /min eCW1 ([facility] to [facility]) Body temperature 98.5 [degF] 98.5 [degF] eCW1 ( [facility]) Systolic blood pressure 203 mm[Hg] 203 mm[Hg] e CW1 ([facility]) Diastolic blood pressure 115 mm[Hg] 115 mm[Hg] eCW1 ([facility]) Patient Treatment Plan of Care Planned Activity Planned Date Details Description Data Source (s) Physical Therapy evaluate and treat 12/17/2019 12:00:00 AM EDT eCW1 ([facility])
[2020-12-24] MEDS ORDERED: TETANUS/DIPHTHERIA TOX ADSORB ADULT 0.5ML SYR/VIAL (90714) IM ONE (16:40)
--- NOTE | 2020-12-24 16:57 | REP ---
INDICATION: cat bite unable to bend for flex thumb. COMPARISON: None. TECHNIQUE: Four views FINDINGS: Degenerative changes seen involving the and. There is no evidence of acute fracture or destructive osseous lesion. IMPRESSION: No acute osseous abnormality. <Electronically signed by Juan M Brock > 12/24/20 [id number]
--- OUTSIDE RECORDS SUMMARY | 2020-12-24 17:04 | CCD ---
Author Author [facility] Organization [facility] Address Unknown Phone Unavailable Care Team Providers Care Supervisor [employer] Name Role Phone Erika, Sonal STANTONP-C Unavailable Unavailabl e Erika, Brianforeignbruce STANTONP-C Unavailable Unavailabl e E[facility], [facility]ene STANTONP-C Unavailable Unavailabl e Erika, [facility] Rene STANTONP-C Unavailable Unavailabl e Erika, [facility] Rene STANTONP-C Unavailable Unavailabl e Erika, [facility] Rene Ashley LATHER APPRENTICE-C Unavailable Unavailabl e Erika, [facility] Rene Ashley LATHER APPRENTICE-C Unavailable Unavailabl e Erika, Brianforeignbruce STANTONP-C Unavailable Unavailabl e Erika, [facility] STANTONP-C Unavailable Unavailabl e Erika, [facility] Rene STANTONP-C Unavailable Unavailabl e Erika, [facility] Rene STANTONP-C Unavailable Unavailabl e Erika, [facility] Rene STANTONP-C Unavailable Unavailabl e Erika, Sonal Gomeze LATHER APPRENTICE-C Unavailable Unavailabl e Erika, Sonal Gomeze LATHER APPRENTICE-C Unavailable Unavailabl e Erika, Sonal W Gabi LATHER APPRENTICE-C Unavailable Unavailabl e Erika, Sonal W Gabi LATHER APPRENTICE-C Unavailable Unavailabl e Erika, Sonal W Gabi LATHER APPRENTICE-C Unavailable Unavailabl e Erika, Sonal W Gabi LATHER APPRENTICE-C Unavailable Unavailabl e Erika, Reginabruce W Gabi LATHER APPRENTICE-C Unavailable Unavailabl e Erika, Reginabruce W Gabi LATHER APPRENTICE-C Unavailable Unavailabl e Erika, Sonal W Gabi LATHER APPRENTICE-C Unavailable Unavailabl e Erika, Sonal W Gabi LATHER APPRENTICE-C Unavailable Unavailabl e Erika, Sonal W Gabi LATHER APPRENTICE-C Unavailable Unavailabl e Erika, Regmarlon W Gabi LATHER APPRENTICE-C Unavailable Unavailabl e Erika, Sonal W Gabi LATHER APPRENTICE-C Unavailable Unavailabl e Erika, Regmarlon W Gabi LATHER APPRENTICE-C Unavailable Unavailabl e Erika, Sonal W Gabi LATHER APPRENTICE-C Unavailable Unavailabl e Erika, Sonal W Gabi LATHER APPRENTICE-C Unavailable Unavailabl e Erika, Sonal W Gabi LATHER APPRENTICE-C Unavailable Unavailabl e Erika, Sonal W Gabi LATHER APPRENTICE-C Unavailable Unavailabl e Erika, Sonal W Gabi LATHER APPRENTICE-C Unavailable Unavailabl e Erika, Regmarlon W Gabi LATHER APPRENTICE-C Unavailable Unavailabl e Holguin, Yoly Unavailable Unavailable Holguin, Yoly Unavailable Unavailable Holguin, Yoly Unavailable Unavailable Holguin, Yoly Unavailable Unavailable Holguin, Yoly Unavailable Unavailable Holguin, Yoly Unavailable Unavailable Holguin, Yoly Unavailable Unavailable ARANDA, P TRUNG PA-C Unavailable Unavailable ARANDA, P TRUNG PA-C Unavailable Unavailable ARANDA, P TRUNG PA-C Unavailable Unavailable MANOJ, P TRUNG PA-C Unavailable Unavailable [facility] Unavailable Unavailable [facility] Unavailable Unavailable [facility] Unavailable Unavailable SHAH, [facility] MARILEE [facility]IER Unavailable Unavailable SHAH, [facility] CASHIER Unavailable Unavailable SHAH, [facility] CASHIER Unavailable Unavailable SHAH, [facility] WINDOW CASHIER Unavailable Unavailable SHAH, [facility] W[employer]OW CASHIER Unavailable Unavailable SHAH, [facility] W[employer]OW CASHIER Unavailable Unavailable SHAH, [facility] WINDOW CASHIER Unavailable Unavailable SHAH, [facility] W[employer]OW CASHIER Unavailable Unavailable SHAH, [facility] [employer] CASHIER Unavailable Unavailable SHAH, [facility] WINDOW CASHIER Unavailable Unavailable SHAH, [facility] [employer] W[employer]OW CASHIER Unavailable Unavailable SHAH, [facility] WINDOW CASHIER Unavailable Unavailable SHAH, [facility] WINDOW CASHIER Unavailable Unavailable SHAH, [facility] [employer] WINDOW CASHIER Unavailable Unavailable SHAH, [facility] [employer] WINDOW CASHIER Unavailable Unavailable SHAH, [facility] WINDOW CASHIER Unavailable Unavailable SHAH, [facility] [employer] WINDOW CASHIER Unavailable Unavailable SHAH, [facility] MARIELE FR[employer] WINDOW CASHIER Unavailable Unavailable SHAH, [facility] MARILE[facility] [employer] WINDOW CASHIER Unavailable Unavailable SHAH, [facility] [employer] WINDOW CASHIER Unavailable Unavailable SHAH, [facility] [employer] WINDOW CASHIER Unavailable Unavailable SHAH, [facility] MARILE[facility] FR[employer] WINDOW CASHIER Unavailable Unavailable SHAH, [facility] [employer] WINDOW CASHIER Unavailable Unavailable SHAH, [facility] WINDOW CASHIER Unavailable Unavailable SHAH, [facility] WINDOW CASHIER Unavailable Unavailable SHAH, [facility] [employer] WINDOW CASHIER Unavailable Unavailable SHAH, [facility] [employer] WINDOW CASHIER Unavailable Unavailable SHAH, [facility] [employer] WINDOW CASHIER Unavailable Unavailable SHAH, [facility] [employer] WINDOW CASHIER Unavailable Unavailable SHAH, [facility] MAR[facility] [employer] WINDOW CASHIER Unavailable Unavailable SHAH, [facility] AMRILEE FRONT WINDOW CASHIER Unavailable Unavailable SHAH, [facility] MARILEE [employer] WINDOW CASHIER Unavailable Unavailable SHAH, [facility] [employer] WINDOW CASHIER Unavailable Unavailable SHAH, [facility] MAR[facility] [employer] WINDOW CASHIER Unavailable Unavailable SHAH, [facility] [employer] WINDOW CASHIER Unavailable Unavailable SHAH, [facility] [employer] WINDOW CASHIER Unavailable Unavailable SHAH, [facility] [employer] WINDOW CASHIER Unavailable Unavailable SHAH, [facility] [employer] WINDOW CASHIER Unavailable Unavailable SHAH, [facility] MAR[facility]E FR[employer] WINDOW CASHIER Unavailable Unavailable SHAH, [facility] MAR[facility] [employer] WINDOW CASHIER Unavailable Unavailable SHAH, [facility] [employer] WINDOW CASHIER Unavailable Unavailable SHAH, [facility] [employer] WINDOW CASHIER Unavailable Unavailable SHAH, [facility] [employer] WINDOW CASHIER Unavailable Unavailable SHAH, [facility] [employer] WINDOW CASHIER Unavailable Unavailable SHAH, [facility] [employer] WINDOW CASHIER Unavailable Unavailable SHAH, [facility] [employer] CASHIER Unavailable Unavailable SHAH, [facility] [employer] C[employer]IER Unavailable Unavailable SARAH ARANDA Unavailable Unavailable Milan Chen MD, FACS Unavailable [...] Penn, Milan Ordonez MD, FACS Unavailable Unavailable Shha Penn, Milan Ordonez MD, FACS Unavailable Unavailable [...] Yoly Unavailable Unavailable Holguin, Yoly Unavailable Unavailable Chris, Rachell Dustin LATHER APPRENTICE Unavailable Unavailable [place], Rachell Dustin LATHER APPRENTICE Unavailable Unavailable [place], Rachell Dustin LATHER APPRENTICE Unavailable Unavailable Chris, Rachell Dustin LATHER APPRENTICE Unavailable Unavailable [place], Rachell Dustin LATHER APPRENTICE Unavailable Unavailable [place], Rachell Dustin LATHER APPRENTICE Unavailable Unavailable [place], Rachell Dustin LATHER APPRENTICE Unavailable Unavailable [place], Rachell Dustin LATHER APPRENTICE Unavailable Unavailable Chris, Rachell Dustin LATHER APPRENTICE Unavailable Unavailable [place], Rachell Dustin LATHER APPRENTICE Unavailable Unavailable Chris, Rachell Dustin LATHER APPRENTICE Unavailable Unavailable Chris, Rachell Dustin LATHER APPRENTICE Unavailable Unavailable [place], Rachell Dustin LATHER APPRENTICE Unavailable Unavailable [place], Rachell Dustin LATHER APPRENTICE Unavailable Unavailable RUSSELL, W AMARJIT PA Unavailable [...] W AMARJIT PA Unavailable Unavailable RUSSELL, W AMAJRIT PA Unavailable Unavailable RUSSELL, W AMARJIT PA [...] ROBERT JOMAR PA Unavailable Unavailable MURALI, ROBERT JMOAR PA Unavailable Unavailable MURALI, ROBERT JOMAR PA [...] is protected by Article 27-F of the [facility] Public Health law. If you continue you may have access to information: Regarding HIV / AIDS; Provided by facilities licensed or operated by the [facility] Office of Mental Health; or Provided by the [facility] Office for People With Developmental Disabilities. If such information is present, then the following [facility] mandated warning applies: This information has [...] law may result in a fine or fci sentence or both. A general authorization for [...] Outpatient Attender: Dustin WOO 12/24/2020 11:19:00 AM [facility] Outpatient Attender: José Luis Penn MD, FACSRefer rer: JEREMY DAY DO EMERGENCY ROOM-LABOTHPROV 12/04/2020 12:12:00 PM EDT - 12/04/2020 12:12:00 PM [facility] Unknown [address] [facility] [address] 08/04/2020 12:00:00 AM EDT eCW1 (Counts include 234 beds at the [facility]) Outpatient [address] [facility] [address] 07/22/2020 12:00:00 AM EDT eCW1 (Counts include 234 beds at the [facility]) Outpatient Attender: JEREMY Stileser: JEREMY GARCIA DO 12/27/2019 10:00:00 AM [facility] Outpatient Attender: JEREMY DAY DO 06/2019 08:53:00 AM EST - 01/15/2020 01:11:00 PM [facility] Patient discharged. Outpatient [address] [facility] [address] 12/17/2019 12:00:00 AM EDT eCW1 (Counts include 234 beds at the [facility]) Outpatient Attender: Yoly López aletha: Yoly HolguinReferrer: JEREMY DAY DO 05/24/2018 08:03:00 AM EDT - 05/24/2018 08:03:00 AM [facility] Outpatient Attender: JEREMY Stileser: JEREMY GARCIA DO 05/24/2018 07:48:00 AM EDT - 05/24/2018 07:48:00 AM [facility] Emergency Attender: TRUNG DaileyCAttender: TRUNG ARANDAReferrer: JEREMY DAY DO EMERGENCY ROOM-ER 03/23/2018 10:42:00 AM EST - 03/23/2018 01:58:00 PM [facility] Emergency Attender: JOMAR NICKERSONeferrer: Milan DAY DO EMERGENCY ROOM-ER 10/21/2017 10:09:00 PM EDT - 10/21/2017 10:20:00 PM [facility] Outpatient Attender: JEREMY Jacksonerrer: JEREMY GARCIA DO 12/14/2016 09:28:00 AM [facility] Outpatient Attender: Gabi WOO-CReferrer: JEREMY WAGONER DO 01/09/2015 10:53:00 AM [facility] Outpatient Attender: Gabi WOO-CReferrer: JEREMY WAGONER DO 11/09/2013 01:28:00 PM [facility] Emergency Attender: AMARJIT Mckeoner: JOHANNE SHAH NP EMERGENCY ROOM-ER 10/25/2013 11:11:00 AM EDT - 10/25/2013 01:44:00 PM EDT [facility] Immunizations Vaccine Date Status Description Data Source(s) COVID-19 dose #2 given elsewhere Unspecified 05/28/2020 10:0 2:00 AM EDT completed eCW1 (Counts include 234 beds at the [facility]) COVID-19 dose #2 given elsewhere Unspecified 05/28/2020 10:0 2:00 AM EDT completed eCW1 (Counts include 234 beds at the [facility]) COVID-19 VACCINE Moderna 05/28/2020 12:00:00 AM EDT completed [facility] Vaccine Series Complete: YESThis Data wa s Submitted to [facility]. COVID-19 VACCINE, MRNA-1273, LNP-S (MODERNA)/PF 05/28/2020 1 2:00:00 AM EDT completed [facility] COVID-19 dose #1 given elsewhere Unspecified 04/26/2020 10:0 1:00 AM EST completed eCW1 (Counts include 234 beds at the [facility]) COVID-19 dose #1 given elsewhere Unspecified 04/26/2020 10:0 1:00 AM EST completed eCW1 (Counts include 234 beds at the [facility]) COVID-19 VACCINE Moderna 04/26/2020 12:00:00 AM EST completed [facility] Vaccine Series Complete: NOThis Data was Submitted to [facility]. COVID-19 VACCINE, MRNA-1273, LNP-S (MODERNA)/PF 04/26/2020 1 [...] EYES 2 TIMES A DAY SOLD: 09/05/2020 [facility] Physical Therapy evaluate and treat UNK 12/17/2019 12:00:00 AM EDT active Physical Therapy evaluate and tr eat eCW1 ([facility]) Insurance Providers Payer name Policy type / Coverage type Policy ID Covered republican ID Covered republican's relationship to alexander Policy Alexander Plan Information [place] Purchase Plan F [id number] SELF [id number] [facility] [id number] 7 [id number] [place]/CHP/P Commercial [id number] Self [id number] [facility] MEDICAID [id number] S [id number] [place]P/P Commercial Medicaid [id number] Self M edicaid [place]/CHP/FHP Commercial [id number] Self [id number] MEDICAID [id number] S [id number] [place] [employer] [id number] S [id number] [place] [id number] S [id number] [place] [employer] MEDICAID [id number] S [id number] [facility] MEDICAID [id number] S [id number] [place] MED[employer] [id number] S [id number] [place] [id number] S [id number] HUMANA GOLD CLASSIC [id number] S [id number] [facility](MCAID) O [id number] S [id number] MEDICAID M [id number] S [id number] [place] [id number] SP [id number] [facility] [id number] SP [id number] MEDICAID [id number] SP [id number] ANSI-Not a Secondary Insurance [id number] ANSI-Medicaid [id number] ANSI-Medicare Part B [id number] ANSI-Commercial [id number] MEDICAID [id number] S [id number] [facility] MEDICARE DIVISION [id number] S [id number] [place]ICARE [place] [id number] S [id number] MEDICARE [id number] SP [id number] ANSI-Medicaid [id number] ANSI-Medicare Part B [id number] ANSI-Commercial [id number] ANSI-Commercial [id number] ANSI-Commercial [id number] [place] [id number] SP [id number] 500 [employer] MEDICAID [facility] [id number] S [id number] [place] [employer] [facility] Part B [id number] Self [id number] [place] [id number] S [id number] [employer] [facility] Part [facility] [id number] Self [id number] [place] [employer] [facility] Part B [id number] Self [place] [employer]ARE [facility] [id number] S [id number] O UNAVAILABLE UNAVAILA BLE [employer]ARE [facility] [id number] S [id number] SELF PAY SP UNAVAILABLE S UNAVAILA BLE MEDICAID [facility] [id number] S [id number] [facility] MEDICAID [id number] SP [id number] SELF PAY UNAVAILABLE SP UNAVAILA BLE [employer] GOLD [id number] SP [id number] [employer]MANA GOLD CLASSIC [id number] S [id number] MEDICAID [id number] S [id number] MEDICAID [id number] S [id number] [facility] DUAL COMPLET [id number] S [id number] Problems, Conditions, and Diagnoses Code Display Name Description Problem Type Effective Dates Data Source(s) Z00.00 Encounter for general adult medical examination without abnormal findings ENCNTR FOR GENERAL ADULT MEDICAL EXAM W/ Diagnosis 021 12:12:00 PM EDT [facility] 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, left eye RECURRENT ACUTE IRIDOCYCLITIS, LEFT EYE Diagnosis 12/04/2020 12:12:00 PM EDT [facility] Z12.31 Encounter for screening mammogram for ma lignant neoplasm of breast ENCNTR SCREEN MAMMOGRAM FOR MALIGNANT NEOPLASM OF BREAST Diagnosis 06/2019 10:00:00 AM [facility] M17.30 Unilateral post-traumatic osteoarthritis , unspecified knee UNILATERAL POST-TRAUMATIC OSTEOARTHRITIS, UNSPECIF Diagnosis 12/27/2019 08:21:00 AM [facility] M17.9 Osteoarthritis of knee, unspecified OSTEOARTHRIT IS OF KNEE, UNSPECIFIED Diagnosis 12/27/2019 08:21:00 AM [facility] M62.81 Muscle weakness (generalized) MUSCLE WEAKNESS (GENERAL IZED) Diagnosis 12/27/2019 08:21:00 AM [facility] G62.9 [id number] Neuropathy Problem 07/22/2020 12:00:00 AM ED T eCW1 ([facility]) Surgeries/Procedures No Information Results ID Date Data Source [id number] 12/11/2020 06:05:00 AM EDT [facility] Name Value Range Interpretation Code Description Data Caroline rce(s) Supporting Document(s) HLA B27 DISEASE ASSOCIATION Negative . [facility] HLA-B*27 SrlenjekE06 allele interpretati on for all loci based on IMGT/HLAdatabase version 3.44This test was developed and its performance characteristicsdetermined by [facility]. It has not been cleared or approvedby the Food and Drug Administration.[facility] Lab CLIA ID Number [id number] test was performed using PCR (Polymerase ChainReaction)/SSOP (Sequence Specific Oligonucleotide Probes)technique. SBT (Sequence Based Typing) and/or SSP(Sequence Specific Primers) may be used as supplementalmethods when necessary. Please contact HLA CustomerService at if you have any questions. Director of HLA Laboratory Dr Antolin More, PhDPerformed at: 2 - [facility] [id number] [place], [place] [id number] Director: Antolin More PhD, Phone: [phone] ID Date Data Source [id number] 12/11/2020 06:05:00 AM EDT [facility] Name Value Range Interpretation Code Description Data Caroline rce(s) Supporting Document(s) HLA-B27 Negative [facility] HLA-B*27 PyrmkplwM84 allele interpretati on for all loci based on IMGT/HLAdatabase version 3.44This test was developed and its performance characteristicsdetermined by [facility]. It has not been cleared or approvedby the Food and Drug Administration.[facility] CLIA ID Number [id number] This test was performed using PCR (Polymerase Chain Reaction)/SSOP(Sequence Specific Oligonucleotide Probes) technique. SBT (SequenceBased Typing) and/or SSP (Sequence Specific Primers) may be used assupplemental methods when necessary. Please contact [facility] CustomerService at if you have any questions. Director of HLA Laboratory Dr Antolin More, PhD ID Date Data Source [id number] 12/04/2020 01:30:00 PM EDT [facility] [phone] Name Value Range Interpretation Code Description Data Caroline rce(s) Supporting Document(s) ERYTHROCYTE SEDIMENTATION RATE 10 mm/hr 0-30 [facility] ID Date Data Source [id number] 12/04/2020 12:56:00 PM EDT [facility] [phone] Name Value Range Interpretation Code Description Data Caroline rce(s) Supporting Document(s) C REACTIVE PROTEIN 11.7 mg/L 0.0-3.0 H [facility] ID Date Data Source [id number] 12/27/2019 12:48:00 PM EST [facility] [...] analyzed through the latest version of the [employer] computer aideddiagnosis system. The patient states that [...] Never Smoker completed Never S moker eCW1 ([facility]) Smoking 07/22/2020 12:00:00 AM EDT Never Smoker completed Never S moker eCW1 ([facility]) Smoking 12/17/2019 12:00:00 AM EDT Never Smoker completed Never S moker eCW1 ([facility]) Vital Signs ID Date Data Source [id number] Name Value Range Interpretation Code Description Data Source(s) Body weight 157.8 [lb_av] 157.8 [lb_av] eCW1 ([facility]) Body height [in_i] eCW1 ([facility]) Body mass index (BMI) [Ratio] 26.67 kg/m2 26.67 kg/m2 eCW1 ([facility]) Heart rate 68 /min 68 /min eCW1 [facility] Respiratory rate 16 /min 16 /min W1 ([facility] hospital) Body temperature 98.6 [degF] 98.6 [degF] eCW1 ( [facility]) Systolic blood pressure 186 mm[Hg] 186 mm[Hg] e CW1 ([facility]) Diastolic blood pressure 100 mm[Hg] 100 mm[Hg] eCW1 ([facility]) Body weight 150.8 [lb_av] 150.8 [lb_av] eCW1 ([facility]) Body height [in_i] eCW1 ([facility]) Body mass index (BMI) [Ratio] 25.48 kg/m2 25.48 kg/m2 eCW1 ([facility]) Heart rate 79 /min 79 /min eCW1 ([facility] hospital) Respiratory rate 16 /min 16 /min eCW1 ([facility] hospital) Body temperature 98.5 [degF] 98.5 [degF] eCW1 ( [facility]) Systolic blood pressure 203 mm[Hg] 203 mm[Hg] e CW1 ([facility]) Diastolic blood pressure 115 mm[Hg] 115 mm[Hg] eCW1 ([facility]) Patient Treatment Plan of Care Planned Activity Planned Date Details Description Data Source (s) Physical Therapy evaluate and treat 12/17/2019 12:00:00 AM EDT eCW1 ([facility])
[2020-12-24] MEDS ORDERED: AMPICILLIN SOD/SULBACTAM SOD 3 GM in D5W MINI-BAG PLUS 100 ML IV ONE (17:20)
[2020-12-24 17:32] LABS: BASO % 0.2 % (0.0-1.0); EOS % 0.5 % (0.0-3.0); HEMATOCRIT 39.3 % (36.0-47.0); HEMOGLOBIN 12.8 g/dl (12.0-15.5); LYMPH # 1.5 10^3/uL (1.5-5.0); LYMPH % 24.5 % (24.0-44.0); MEAN CORPUSCULAR HEMOGLOBIN 31.4 pg (27.0-33.0); MEAN CORPUSCULAR HGB CONC 32.6 g/dl (32.0-36.5); MEAN CORPUSCULAR VOLUME 96.3 fl (80.0-96.0); MONO # 0.5 10^3/uL (0.0-0.8); MONO % 8.7 % (2.0-8.0); NEUTROPHILS % 65.8 % (36.0-66.0); PLATELET COUNT, AUTOMATED 290 10^3/uL (150-450); RED BLOOD COUNT 4.08 10^6/uL (4.00-5.40); WHITE BLOOD COUNT 6.1 10^3/uL (4.0-10.0)
[2020-12-24 17:55] LABS: ALBUMIN 4.6 GM/DL (3.2-5.2); ALT/SGPT 37 U/L (12-78); BILIRUBIN,TOTAL 0.6 MG/DL (0.2-1.0); BLOOD UREA NITROGEN 14 MG/DL (7-18); C REACTIVE PROTEIN QUANTITATIV 6.43 MG/DL (0.00-0.30); CARBON DIOXIDE LEVEL 26 MEQ/L (21-32); CHLORIDE LEVEL 105 MEQ/L (98-107); CREATININE FOR GFR 0.68 MG/DL (0.55-1.30); GLOMERULAR FILTRATION RATE > 60.0 (>45); GLUCOSE, FASTING 96 MG/DL (70-100); POTASSIUM SERUM 3.5 MEQ/L (3.5-5.1); SODIUM LEVEL 138 MEQ/L (136-145); TOTAL PROTEIN 8.3 GM/DL (6.4-8.2)
[2020-12-24 18:11] LABS: ERYTHROCYTE SEDIMENTATION RATE 28 mm/hr (0-30)
[2020-12-24] MEDS ORDERED: KETOROLAC 30 MG/ML 1ML VIAL IV ONE (18:40)
--- NOTE | 2020-12-24 20:38 | CR.PDOC ---
General Date of Consultation: Dec 24, 2020 Attending Physician: ANDREA MARTINEZ MD Consultation REASON FOR CONSULTATION/CHIEF COMPLAINT: [Asked to see female with cat bite 1 PM 12/23/2020. Progressive swelling of the thumb and dorsal radial forearm]. HISTORY OF PRESENT ILLNESS: [Patient states she had a cat bite at 1 PM 12/23/2020. Progressive swelling of the thumb and first web space dorsally. With increased swelling difficulty moving hand within crease pain.]. ALLERGIES: Please see below. HOME MEDICATIONS: Please see below. PAST MEDICAL HISTORY: Otherwise healthy PAST SURGICAL HISTORY: Noncontributory FAMILY HISTORY: Noncontributory SOCIAL HISTORY: Noncontributory REVIEW OF SYSTEMS: 14 point review of systems negative except for HPI. PHYSICAL EXAMINATION: VITAL SIGNS: Please see below. GENERAL APPEARANCE: [Resting comfortably sitting on the stretcher]. HEENT: [Within normal limits]. RESPIRATORY: [Breathing comfortably on room air]. CARDIOVASCULAR: [Vitals stable]. ABDOMEN: [Comfortable nontender]. EXTREMITIES: [Right thumb red hot swollen down to the first webspace. 2 puncture bites from possible cat bite She can flex and extend her thumb approximately 30% of normal. Increased pain dorsally with flexion. Other 4 digits full range of motion no pain Wrist full range of motion no pain Elbow full range of motion no pain]. NEUROLOGICAL: . PSYCHIATRIC: . LABORATORY DATA: Please see below. ASSESSMENT/PLAN: Cat bite with cellulitis and possible early tenosynovitis. Recommend patient receive IV antibiotics. Recommend further evaluation by hand surgeon who can perform possible irrigation debridement if symptoms with exudative tenosynovitis Vital Signs/I&O Vital Signs Date Time Temp Pulse Resp B/P (MAP) Pulse Ox O2 Delivery O2 Flow Rate FiO2 12/24/20 19:32 99.0 82 16 187/87 (120) 98 Room Air Laboratory Data Labs 24H Laboratory Tests 2 12/24/20 17:05: Immature Granulocyte % (Auto) 0.3, Neutrophils (%) (Auto) 65.8, Lymphocytes (%) (Auto) 24.5, Monocytes (%) (Auto) 8.7H, Eosinophils (%) (Auto) 0.5, Basophils (%) (Auto) 0.2, Neutrophils # (Auto) 4.0, Lymphocytes # (Auto) 1.5, Monocytes # (Auto) 0.5, Eosinophils # (Auto) 0.0, Basophils # (Auto) 0.0, Nucleated Red Bl ood Cells % (auto) 0.0, Erythrocyte Sedimentation Rate 28, Anion Gap 7L, Glomerular Filtration Rate > 60.0, Lactic Acid Level 0.8, Calcium Level 10.0, Total Bilirubin 0.6, Aspartate Amino Transf (AST/SGOT) 20, Alanine Aminotransferase (ALT/SGPT) 37, Alkaline Phosphatase 71, C-Reactive Protein, Quantitative 6.43H, Total Protein 8.3H, Albumin 4.6, Albumin/Globulin Ratio 1.2 CBC/BMP Laboratory Tests 12/24/20 17:05 Microbiology Microbiology 12/24/20 Blood Culture, Received Pending 12/24/20 Blood Culture, Received Pending Allergies Coded Allergies: No Known Allergies (Unverified , 12/24/20) Home Medications Miscellaneous Medications Cyclosporine (Restasis) 0.05% Liyah, (Reported) ANDREA MARTINEZ MD Dec 24, 2020 20:38
[2020-12-24 22:41] LABS: RSV AMPLIFICATION NEGATIVE (NEGATIVE)
[2020-12-24] MEDS ORDERED: MORPHINE 2 MG/ML 1ML VIAL (J2270) IV PRN (22:55)
[2020-12-24] MEDS ORDERED: ONDANSETRON 4MG/2ML VIAL IV PRN (22:55)
--- OUTSIDE RECORDS SUMMARY | 2020-12-24 23:10 | CCD ---
Author Author [facility] Organization [facility] Address Unknown Phone Unavailable Care Team Providers Care Night Baker Name Role Phone Erika, Sonal WOO-C Unavailable Unavailabl e Erika, Sonal STANTONP-C Unavailable Unavailabl e Erika, Sonal STANTONP-C Unavailable Unavailabl e Erika, Sonal WOO-C Unavailable Unavailabl e Erika, Sonal STANTONP-C Unavailable Unavailabl e Erika, Sonal STANTONP-C Unavailable Unavailabl e Erika, Sonal STANTONP-C Unavailable Unavailabl e Erika, Sonal WOO-C Unavailable Unavailabl e Erika, Sonal STANTONP-C Unavailable Unavailabl e Erika, Sonal STANTONP-C Unavailable Unavailabl e Erika, Sonal WOO-C Unavailable Unavailabl e Erika, Reginah W Gabi [employer]AMP[employer] RECRUITING INTERN-C Unavailable Unavailabl e Erika, Sonal Gomeze CAMPUS RECRUITING INTERN-C Unavailable Unavailabl e Erika, Sonal Gomeze CAMPUS RECRUITING INTERN-C Unavailable Unavailabl e Erika, Sonal Gomeze CAMPUS RECRUITING INTERN-C Unavailable Unavailabl e Erika, Sonal Gomeze CAMPUS RECRUITING INTERN-C Unavailable Unavailabl e Erika, Sonal W Gabi CAMPUS RECRUITING INTERN-C Unavailable Unavailabl e Erika, Sonal W Gabi CAMPUS RECRUITING INTERN-C Unavailable Unavailabl e Erika, Sonal W Gabi CAMPUS RECRUITING INTERN-C Unavailable Unavailabl e Erika, Sonal W Gabi CAMPUS RECRUITING INTERN-C Unavailable Unavailabl e Erika, Sonal W Gabi CAMPUS RECRUITING INTERN-C Unavailable Unavailabl e Erika, Sonal Cárdenasyce CAMPUS RECRUITING INTERN-C Unavailable Unavailabl e Erika, Sonal W Gabi CAMPUS RECRUITING INTERN-C Unavailable Unavailabl e Erika, Sonal Cárdenasyce CAMPUS RECRUITING INTERN-C Unavailable Unavailabl e Erika, Sonal Cárdenasyce CAMPUS RECRUITING INTERN-C Unavailable Unavailabl e Erika, Sonal Cárdenasyce CAMPUS RECRUITING INTERN-C Unavailable Unavailabl e Erika, Sonal Gomeze CAMPUS RECRUITING INTERN-C Unavailable Unavailabl e Erika, Sonal Cárdenasyce CAMPUS RECRUITING INTERN-C Unavailable Unavailabl e Erika, Sonal Cárdenasyce CAMPUS RECRUITING INTERN-C Unavailable Unavailabl e Erika, Sonal Cárdenasyce CAMPUS RECRUITING INTERN-C Unavailable Unavailabl e Erika, Sonal Cárdenasyce CAMPUS RECRUITING INTERN-C Unavailable Unavailabl e Erika, Sonal López Gabi CAMP[facility] RECRUITING INTERN-C Unavailable Unavailabl e Holguin, Yoly Unavailable Unavailable Holguin, Yoly Unavailable Unavailable Holguin, Yoly Unavailable Unavailable Holguin, Yoly Unavailable Unavailable Holguin, Yoly Unavailable Unavailable Holguin, Yoly Unavailable Unavailable Holguin, Yoly Unavailable Unavailable ARANDA, P TRUNG PA-C Unavailable Unavailable ARANDA, P TRUNG PA-C Unavailable Unavailable ARANDA, P TRUNG PA-C Unavailable Unavailable MANOJ, P TRUNG PA-C Unavailable Unavailable MERCY SHAH CRM ANALYST Unavailable Unavailable MERCY SHAH CRM ANALYST Unavailable Unavailable SHHA, MERCY MARILEE CRM ANALYST Unavailable Unavailable SHAH, MERCY MARILEE CRM ANALYST Unavailable Unavailable SHAH, MERCY MARILEE CRM ANALYST Unavailable Unavailable SHAH, MERCY MARILEE CRM ANALYST Unavailable Unavailable SHAH, MERCY MARILEE CRM ANALYST Unavailable Unavailable SHAH, MERCY MARILEE CRM ANALYST Unavailable Unavailable SHAH, MERCY MARILEE CRM ANALYST Unavailable Unavailable SHAH, MERCY MARILEE CRM ANALYST Unavailable Unavailable SHAH, MERCY MARILEE CRM ANALYST Unavailable Unavailable SHAH, MERCY MARILEE CRM ANALYST Unavailable Unavailable SHAH, MERCY MARILEE CRM ANALYST Unavailable Unavailable SHAH, MERCY MARILEE CRM ANALYST Unavailable Unavailable SHAH, MERCY MARILEE CRM ANALYST Unavailable Unavailable SHAH, MERCY MARILEE CRM ANALYST Unavailable Unavailable SHAH, MERCY MARILEE CRM ANALYST Unavailable Unavailable SHAH, MERCY MARILEE CRM ANALYST Unavailable Unavailable SHAH, MERCY MARILEE CRM ANALYST Unavailable Unavailable SHAH, MERCY MARILEE CRM ANALYST Unavailable Unavailable SHAH, MERCY MARILEE CRM ANALYST Unavailable Unavailable SHAH, MERCY MARILEE CRM ANALYST Unavailable Unavailable SHAH, MERCY MARILEE CRM ANALYST Unavailable Unavailable SHAH, MERCY MARILEE CRM ANALYST Unavailable Unavailable SHAH, MERCY MARILEE CRM ANALYST Unavailable Unavailable SHAH, MERCY MARILEE CRM ANALYST Unavailable Unavailable SHAH, MERCY MARILEE CRM ANALYST Unavailable Unavailable SHAH, MERCY MARILEE CRM ANALYST Unavailable Unavailable SHAH, MERCY MARILEE CRM ANALYST Unavailable Unavailable SHAH, MERCY MARILEE CRM ANALYST Unavailable Unavailable SHAH, MERCY MARILEE CRM ANALYST Unavailable Unavailable SHAH, MERCY MARILEE CRM ANALYST Unavailable Unavailable SHAH, MERCY MARILEE CRM ANALYST Unavailable Unavailable SHAH, MERCY MARILEE CRM ANALYST Unavailable Unavailable SHAH, MERCY MARILEE CRM ANALYST Unavailable Unavailable SHAH, MERCY MARILEE CRM ANALYST Unavailable Unavailable SHAH, MERCY MARILEE CRM ANALYST Unavailable Unavailable SHAH, MERCY MARILEE CRM ANALYST Unavailable Unavailable SHAH, MERCY MARILEE CRM ANALYST Unavailable Unavailable SHAH, MERCY MARILEE CRM ANALYST Unavailable Unavailable SHAH, MERCY MARILEE CRM ANALYST Unavailable Unavailable SHAH, MERCY MARILEE CRM ANALYST Unavailable Unavailable SHAH, MERCY MARILEE CRM ANALYST Unavailable Unavailable SHAH, MERCY MARILEE CRM ANALYST Unavailable Unavailable SHAH, MERCY MARILEE CRM ANALYST Unavailable Unavailable SHAH, MERCY MARILEE CRM ANALYST Unavailable Unavailable SHAH, MERCY MARILEE CRM ANALYST Unavailable Unavailable SHAH, MERCY MARILEE CRM ANALYST Unavailable Unavailable SHAH, MERCY MARILEE CRM ANALYST Unavailable Unavailable SHAH, MERCY MARILEE CRM ANALYST Unavailable Unavailable SARAH ARANDA Unavailable Unavailable Pablo [...] Yoly Unavailable Unavailable Holguin, Yoly Unavailable Unavailable Smyrna, Rachell Dustin CAMPUS RECRUITING INTERN Unavailable Unavailable Smyrna, Rachell Dustin CAMPUS RECRUITING INTERN Unavailable Unavailable Smyrna, Rachell Dustin CAMPUS RECRUITING INTERN Unavailable Unavailable Chris, Rachell Dustin CAMPUS RECRUITING INTERN Unavailable Unavailable Chris, Rachell Dustin CAMPUS RECRUITING INTERN Unavailable Unavailable Smyrna, Rachell Dustin CAMPUS RECRUITING INTERN Unavailable Unavailable Chris, Rachell Dustin CAMPUS RECRUITING INTERN Unavailable Unavailable Chris, Rachell Dustin CAMPUS RECRUITING INTERN Unavailable Unavailable Smyrna, Rachell Dustin CAMPUS RECRUITING INTERN Unavailable Unavailable Chris, Rachell Dustin CAMPUS RECRUITING INTERN Unavailable Unavailable Chris, Rachell Dustin CAMPUS RECRUITING INTERN Unavailable Unavailable Chris, Rachell Dustin CAMPUS RECRUITING INTERN Unavailable Unavailable Chris, Rachell Dustin CAMPUS RECRUITING INTERN Unavailable Unavailable Chris, Rachell Dustin CAMPUS RECRUITING INTERN Unavailable Unavailable RUSSELL, W AMARJIT PA Unavailable [...] is protected by Article 27-F of the [facility] Public Health law. If you continue you may have access to information: Regarding HIV / AIDS; Provided by facilities licensed or operated by the [facility] Office of Mental Health; or Provided by the [facility] Office for People With Developmental Disabilities. If such information is present, then the following [facility] mandated warning applies: This information has [...] law may result in a fine or custodial sentence or both. A general authorization for [...] Outpatient Attender: Dustin WOO 12/24/2020 11:19:00 AM [facility] Outpatient Attender: José Luis Penn MD, FACSRefer rer: JEREMY DAY DO EMERGENCY ROOM-LABOTHPROV 12/04/2020 12:12:00 PM EDT - 12/04/2020 12:12:00 PM [facility] [place] [address] [address] 08/04/2020 12:00:00 AM EDT eC1 ([facility]) Out[place] [address] [address] 07/22/2020 12:00:00 AM EDT eCW1 ([facility]) Outpatient Attender: JEREMY Stileser: JEREMY GARCIA DO 12/27/2019 10:00:00 AM [facility] Outpatient Attender: JEREMY DAY DO 06/2019 08:53:00 AM EST - 01/15/2020 01:11:00 PM [facility] Patient discharged. Outpatient [address] [facility] [address] 12/17/2019 12:00:00 AM EDT eCW1 ([facility]) Outpatient Attender: Yoly López aletha: Yoly HolguinReferrer: JEREMY DAY DO 05/24/2018 08:03:00 AM EDT - 05/24/2018 08:03:00 AM [facility] Outpatient Attender: JEREMY Stileser: JEREMY GARCIA DO 05/24/2018 07:48:00 AM EDT - 05/24/2018 07:48:00 AM [facility] Emergency Attender: TRUNG DaileyCAttender: TRUNG ARANDAReferrer: JEREMY DAY DO EMERGENCY ROOM-ER 03/23/2018 10:42:00 AM EST - 03/23/2018 01:58:00 PM [facility] Emergency Attender: JOMAR CARRION PAReferrer: Milan DAY DO EMERGENCY ROOM-ER 10/21/2017 10:09:00 PM EDT - 10/21/2017 10:20:00 PM [facility] Outpatient Attender: JEREMY Jacksonerrer: JEREMY GARCIA DO 12/14/2016 09:28:00 AM [facility] Outpatient Attender: Gabi WOO-CReferrer: JEREMY WAGONER DO 01/09/2015 10:53:00 AM [facility] Outpatient Attender: Gabi WOO-CReferrer: JEREMY WAGONER DO 11/09/2013 01:28:00 PM [facility] Emergency Attender: AMARJITDEB Zamanerrer: JOHANNE SHAH NP EMERGENCY ROOM-ER 10/25/2013 11:11:00 AM EDT - 10/25/2013 01:44:00 PM [facility] Immunizations Vaccine Date Status Description Data Source(s) COVID-19 dose #2 given elsewhere Unspecified 05/28/2020 10:0 2:00 AM EDT completed eCW1 ([facility]) COVID-19 dose #2 given elsewhere Unspecified 05/28/2020 10:0 2:00 AM EDT completed eCW1 ([facility]) COVID-19 VACCINE Moderna 05/28/2020 12:00:00 AM EDT completed [facility] Vaccine Series Complete: YESThis Data wa s Submitted to [facility]. COVID-19 VACCINE, MRNA-1273, LNP-S (MODERNA)/PF 05/28/2020 1 2:00:00 AM EDT completed [facility] COVID-19 dose #1 given elsewhere Unspecified 04/26/2020 10:0 1:00 AM EST completed eCW1 ([facility]) COVID-19 dose #1 given elsewhere Unspecified 04/26/2020 10:0 1:00 AM EST completed eCW1 ([facility]) COVID-19 VACCINE Moderna 04/26/2020 12:00:00 AM EST completed [facility] Vaccine Series Complete: NOThis Data was Submitted to [facility]. COVID-19 VACCINE, MRNA-1273, LNP-S (MODERNA)/PF 04/26/2020 1 [...] Physical Therapy evaluate and tr eat eCW1 ([facility]) Insurance Providers Payer name Policy type / Coverage type Policy ID Covered alliance party ID Covered alliance party's relationship to alexander Policy Alexander Plan Information Stark Purchase Plan F [id number] SELF [id number] [facility] [id number] SP [id number] [place] Medicaid/P/P Commercial [id number] Self [id number] [facility] MEDICAID [id number] S [id number] [place] Medicaid/P/P Commercial Medicaid [id number] Self M edicaid [place] Medicaid/CHP/P Commercial [id number] Self [id number] [facility] DUAL COMPLET [id number] S [id number] MEDICAID [id number] S [id number] [employer] MEDICARE DIVISION [id number] S [id number] [place] [id number] S [id number] [place] [employer] MEDICAID [id number] S [id number] [facility] MEDICAID [id number] S [id number] [place] MEDICARE DIVISION [id number] S [id number] [place]IC[place] [id number] S [id number] HUMANA GOLD CLASSIC [id number] S [id number] [facility](MCAID) O [id number] S [id number] MEDICAID M [id number] S [id number] [place] [id number] SP [id number] [facility] MCRO [id number] SP [id number] MEDICAID [id number] SP [id number] ANSI-Not a Secondary Insurance [id number] ANSI-Medicaid [id number] ANSI-Medicare Part B [id number] ANSI-Commercial [id number] MEDICAID [id number] S [id number] [facility] MEDICARE DIVISION [id number] S [id number] [place]ICARE [place] [id number] S [id number] MEDICARE [id number] SP [id number] ANSI-Medicaid [id number] ANSI-Medicare Part B [id number] ANSI-Commercial [id number] ANSI-Commercial [id number] ANSI-Commercial [id number] [place] [id number] SP [id number] [employer] MEDICAID MCD HMO [id number] S [id number] [id number] Insurance [facility]Global [facility] Part B [id number] Self [id number] [place] [id number] S [id number] Insurance [employer] [facility] Part B [id number] Self [id number] Insurance [employer] [facility] Part B [id number] Self [facility] [id number] S [id number] UNAVAILABLE UNAVAILA BLE [facility] [id number] S [id number] SELF PAY SP UNAVAILABLE S UNAVAILA BLE MEDICAID MCD [id number] S [id number] HUMANA GOLD [id number] SP [id number] SELF PAY UNAVAILABLE SP UNAVAILA BLE [facility] MEDICAID [id number] SP [id number] HUMANA GOLD [id number] SP [id number] HU[employer]NA GOLD CLASSIC [id number] S [id number] MEDICAID [id number] S [id number] MEDICAID [id number] S [id number] Problems, Conditions, and Diagnoses Code Display Name Description Problem Type Effective Dates Data Source(s) Z00.00 Encounter for general adult medical examination without abnormal findings ENCNTR FOR GENERAL ADULT MEDICAL EXAM W/ Diagnosis 021 12:12:00 PM EDT [facility] 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, left eye RECURRENT ACUTE IRIDOCYCLITIS, LEFT EYE Diagnosis 12/04/2020 12:12:00 PM EDT [facility] Z12.31 Encounter for screening mammogram for ma lignant neoplasm of breast ENCNTR SCREEN MAMMOGRAM FOR MALIGNANT NEOPLASM OF BREAST Diagnosis 06/2019 10:00:00 AM [facility] M17.30 Unilateral post-traumatic osteoarthritis , unspecified knee UNILATERAL POST-TRAUMATIC OSTEOARTHRITIS, UNSPECIF Diagnosis 12/27/2019 08:21:00 AM [facility] M17.9 Osteoarthritis of knee, unspecified OSTEOARTHRIT IS OF KNEE, UNSPECIFIED Diagnosis 12/27/2019 08:21:00 AM [facility] M62.81 Muscle weakness (generalized) MUSCLE WEAKNESS (GENERAL IZED) Diagnosis 12/27/2019 08:21:00 AM [facility] G62.9 [id number] Neuropathy Problem 07/22/2020 12:00:00 AM ED T eCW1 ([facility]) Surgeries/Procedures No Information Results ID Date Data Source [id number] 12/11/2020 06:05:00 AM EDT [facility] Name Value Range Interpretation Code Description Data Caroline rce(s) Supporting Document(s) HLA B27 DISEASE ASSOCIATION Negative . [facility] HLA-B*27 SfmozwrkP21 allele interpretati on for all loci based on IMGT/HLAdatabase version 3.44This test was developed and its performance characteristicsdetermined by [facility]. It has not been cleared or approvedby the Food and Drug Administration.[facility] Lab CLIA ID Number [id number] test was performed using PCR (Polymerase ChainReaction)/SSOP (Sequence Specific Oligonucleotide Probes)technique. SBT (Sequence Based Typing) and/or SSP(Sequence Specific Primers) may be used as supplementalmethods when necessary. Please contact [facility] CustomerService at if you have any questions. Director of HLA Laboratory Dr Antolin More, PhDPerformed at: 2 - [facility] [id number] [place], [place] [id number] Director: Antolin More PhD, Phone: [phone] ID Date Data Source [id number] 12/11/2020 06:05:00 AM EDT [facility] Name Value Range Interpretation Code Description Data Caroline rce(s) Supporting Document(s) HLA-B27 Negative [facility] HLA-B*27 LsupqxslB22 allele interpretati on for all loci based on IMGT/HLAdatabase version 3.44This test was developed and its performance characteristicsdetermined by [facility]. It has not been cleared or approvedby the Food and Drug Administration.[facility] CLIA ID Number [id number] This test was performed using PCR (Polymerase Chain Reaction)/SSOP(Sequence Specific Oligonucleotide Probes) technique. SBT (SequenceBased Typing) and/or SSP (Sequence Specific Primers) may be used assupplemental methods when necessary. Please contact [facility] Customer[facility] at if you have any questions. Director of [facility] Laboratory Dr Antolin More, PhD ID Date Data Source [id number] 12/04/2020 01:30:00 PM EDT [facility] [phone] Name Value Range Interpretation Code Description Data Caroline rce(s) Supporting Document(s) ERYTHROCYTE SEDIMENTATION RATE 10 mm/hr 0-30 [facility] ID Date Data Source [id number] 12/04/2020 12:56:00 PM EDT [facility] [phone] Name Value Range Interpretation Code Description Data Caroline rce(s) Supporting Document(s) C REACTIVE PROTEIN 11.7 mg/L 0.0-3.0 [facility] ID Date Data Source [id number] 12/27/2019 12:48:00 PM EST [facility] [...] analyzed through the latest version of the [employer] computer aideddiagnosis system. The patient states [...] EDT Never Smoker completed Never S moker [facility] ([facility]) Smoking 07/22/2020 12:00:00 AM EDT Never Smoker completed Never S moker eCW1 ([facility]) Smoking 12/17/2019 12:00:00 AM EDT Never Smoker completed Never S moker eCW1 ([facility]) Vital Signs ID Date Data Source UNK Name Value Range Interpretation Code Description Data Source(s) Body height [in_i] eCW1 ([facility]) Body weight 157.8 [lb_av] 157.8 [lb_av] eCW1 ([facility]) Body mass index (BMI) [Ratio] 26.67 kg/m2 26.67 kg/m2 W1 ([facility]) Heart rate 68 /min 68 /min eCW1 ([facility]) Respiratory rate 16 /min 16 /min W1 ([facility]) Body temperature 98.6 [degF] 98.6 [degF] eCW1 ( [facility]) Systolic blood pressure 186 mm[Hg] 186 mm[Hg] e CW1 ([facility]) Diastolic blood pressure 100 mm[Hg] 100 mm[Hg] eCW1 ([facility]) Body weight 150.8 [lb_av] 150.8 [lb_av] eCW1 ([facility]) Body height [in_i] eCW1 ([facility]) Body mass index (BMI) [Ratio] 25.48 kg/m2 25.48 kg/m2 eCW1 ([facility]) Heart rate 79 /min 79 /min eCW1 ([facility]) Respiratory rate 16 /min 16 /min eCW1 ([facility]) Body temperature 98.5 [degF] 98.5 [degF] eCW1 ( [facility]) Systolic blood pressure 203 mm[Hg] 203 mm[Hg] e CW1 ([facility]) Diastolic blood pressure 115 mm[Hg] 115 mm[Hg] eCW1 ([facility]) Patient Treatment Plan of Care Planned Activity Planned Date Details Description Data Source (s) Physical Therapy evaluate and treat 12/17/2019 12:00:00 AM EDT eCW1 ([facility])
[2020-12-24] MEDS ORDERED: CURCPOW PO (23:16)
[2020-12-24] MEDS ORDERED: PREDOPD OS (23:16)
[2020-12-24] MEDS ORDERED: REST0.05 OU (23:16)
[2020-12-24] MEDS ORDERED: OMEGCAP4 PO (23:16)
[2020-12-24] MEDS ORDERED: ACET-907 PO (23:16)
[2020-12-24] MEDS ORDERED: VITMTA PO (23:16)
[2020-12-24] MEDS ORDERED: HOME MED LIST COMPLETE! XX SCH (23:20)
[2020-12-24] MEDS ORDERED: RAMELTEON 8 MG TAB (ROZEREM) PO PRN (23:25)
[2020-12-25] MEDS ORDERED: **hydrALAZINE** 10 MG TAB PO PRN
--- NOTE | 2020-12-25 00:01 | HPEPDOC ---
General Date of Admission Dec 24, 2020 at 22:54 Date of Service: Dec 24, 2020 Chief Complaint The patient is a 70-year-old female admitted with a reason for visit of Cellulitis Of Hand, Right. Source: Patient History of Present Illness Alise Gonsales is a 70-year-old female with past medical history of dry eyes and hypertension who presents with complaints of right hand pain. Patient reports yesterday at 1 PM finding her cat in a state of pain and when she attempted to move him she noted his leg to be dangling and the injured animal bit her during pain response. Patient reports she quickly cleaned the wound, anticipating to return to take the cat to the vet, but her cat had by the time she returned. She denied any other erratic behavior of the cat prior to this occurrence. She does report that he was an outdoor cat and was not up-to-date on shots. The patient reports the bite was red and understandably mildly painful. She reported after the cat passed, cleaning the wound again and putting triple antibiotic ointment on it with bandage. Some redness and throbbing type pain increased to the right hand which she took Tylenol for and went to bed that evening. Around 4 AM patient reports that the throbbing pain woke her up and she had to take some more Tylenol in order to go back to sleep. She reports as the day progressed today worsening redness to the dorsal aspect of the hand with tenderness and swelling. Reports there was an area where there appeared to be some pus and she "popped" it and drained some small amount of milky drainage. In the hours following this she describes some stiffness to the left thumb and even the left forefinger and some redness streaking up towards the AC fossa from the area redness of the dorsal aspect of her thumb and hand. She went to urgent care and upon seeing her hand they encouraged her to come to the hospital. Pt denies fevers/chills, sob, palpitations, chest pain, n/v/d, abdominal pain, weakness, sensory changes or syncope. She does report the right hand is where she has had a history of carpal tunnel surgery and trigger finger release. She reports at baseline she may have some right middle, ring and pinky finger "burning" from her history of carpal tunnel -however the inability to move and the "tightness" of her right finger when flexing is new. Of note, no leukocytosis, patient afebrile, not tachycardic. Patient is somewhat hypertensive but has reported pain 8 out of 10 throbbing. CRP elevated 6.43 X-ray nonacute for osseous abnormality. Patient received antibiotics and tetanus shot in ED. There is a concern given her presentation and area of the puncture wounds for tendon involvement. Ortho was contacted for recommendations and suggestion for transfer for hand surgery input. However, no bed availability and thus, one-on-one discussion occurred between ortho with recommendations for IV antibiotics and transfer with any worsening symptoms. Patient will be admitted for further evaluation management presenting concerns Home Medications Scheduled Cyclosporine (Restasis) 0.05% Droperette, 1 DROP OU BID, (Reported) Multivitamins (Thera M Plus Tablet) 1 Each Tablet, 1 TAB PO DAILY, (Reported) [place]-3/Dha/Epa/Fish Oil ([place]-3 Fish Oil 1,000 mg Sfgl) 1,000 Mg Capsule, 1 CAP PO DAILY, (Reported) Prednisolone Acetate (Prednisolone Acetate 1% Opth Susp) 5 Ml Drops.susp, 1 DROP OS DAILY, (Reported) Scheduled PRN Acetaminophen (Tylenol) 325 Mg Tablet, 650 MG PO Q4H PRN for MILD PAIN (PS 1-4), (Reported) Allergies Coded Allergies: No Known Allergies (Unverified , 12/24/20) Past Medical History Medical History Hypertensiondiet and exercise controlled, dry eye, carpal tunnel Surgical History Carpal tunnel and trigger finger surgery Family History Significant Family History: Cancer, Diabetes Fatherdiabetes and colon cancer; grandmotherbreast cancer Social History * Smoker: Denies Alcohol: occationally Drugs: denies Recent Travel/Sick Contacts: Denies: Recent travel, Recent sick contacts Psychosocial History: No pertinent psych hx A-FIB/CHADSVASC A-FIB History Current/History of A-Fib/PAF?: No Current PO Anticoag Therapy: No Review of Systems Constitutional: Denies: Chills, Fever, Night Sweats Eyes: Denies: Pain, Vision change ENT: Denies: Head Aches, Ear Pain, Dysphagia Skin: Reports: Other (+ Erythema swelling); Denies: Rash, Lesions, Breakdown Pulmonary: Denies: Dyspnea, Cough Cardiovascular: Denies: Chest Pain, Palpitations, Orthopnea, Paroxysmal Noc. Dyspnea, Lt Headedness Gastrointestinal: Denies: Nausea, Vomiting, Abdominal Pain, Diarrhea Genitourinary: Denies: Dysuria, Frequency, Incontinence, Retention Hematologic: Denies: Bruising, Bleeding Excessively Musculoskeletal: Reports: Other Symptoms (Right hand pain throbbing); Denies: Neck Pain, Back Pain, Joint Pain, Muscle Pain, Spasms Neurological: Denies: Weakness, Numbness, Change in speech, Confusion Psych: Reports: Mood Normal; Denies: Depression, Memory Issues Physical Examination General Exam: Positive: Alert, Cooperative, No Acute Distress Eye Exam: Positive: PERRLA, Conjunctiva & lids normal, EOMI; Negative: Sclera icteric ENT Exam: Positive: Atraumatic, Mucous membr. moist/pink, Pharynx Normal Neck Exam: Positive: Supple; Negative: JVD, thyromegaly Chest Exam: Positive: Clear to auscultation, Normal air movement Heart Exam: Positive: Rate Normal, Regular Rhythm, Normal S1, Normal S2; Negative: Murmurs, Rubs Telemetry: Positive: No significant arrhythmia Abdomen Exam: Positive: Normal bowel sounds, Soft; Negative: Tenderness, Hepatospenomegaly Extremity Exam: Positive: Normal pulses, Tenderness, Swelling, Other (starting from thumb to the dorsal aspect of hand + erythema and swelling. Redness streaking from anterior forearm up to AC fossa); Negative: Clubbing, Cyanosis, Edema Skin Exam: Positive: Nl turgor and temperature, Rash, Other skin issue (starting from thumb to the dorsal aspect of hand + erythema and swelling. Redness streaking from anterior forearm up to AC fossa); Negative: Breakdown, Lesion Neuro Exam: Positive: Normal Gait, Normal Speech, Cranial Nerves 3-12 NL, Reflexes 2+ Psych Exam: Positive: Mental status NL, Mood NL, Oriented x 3 Vital Signs Vital Signs Date Time Temp Pulse Resp B/P (MAP) Pulse Ox O2 Delivery O2 Flow Rate FiO2 12/24/20 19:32 99.0 82 16 187/87 (120) 98 Room Air Laboratory Data Labs 24H Laboratory Tests 2 12/24/20 17:05: Immature Granulocyte % (Auto) 0.3, Neutrophils (%) (Auto) 65.8, Lymphocytes (%) (Auto) 24.5, Monocytes (%) (Auto) 8.7H, Eosinophils (%) (Auto) 0.5, Basophils (%) (Auto) 0.2, Neutrophils # (Auto) 4.0, Lymphocytes # (Auto) 1.5, Monocytes # (Auto) 0.5, Eosinophils # (Auto) 0.0, Basophils # (Auto) 0.0, Nucleated Red Blood Cells % (auto) 0.0, Erythrocyte Sedimentation Rate 28, Anion Gap 7L, Glomerular Filtration Rate > 60.0, Lactic Acid Level 0.8, Calcium Level 10.0, Total Bilirubin 0.6, Aspartate Amino Transf (AST/SGOT) 20, Alanine Aminotransferase (ALT/SGPT) 37, Alkaline Phosphatase 71, C-Reactive Protein, Quantitative 6.43H, Total Protein 8.3H, Albumin 4.6, Albumin/Globulin Ratio 1.2 12/24/20 21:50: Coronavirus (COVID-19)(PCR) NEGATIVE, Influenza Type A (RT-PCR) NEGATIVE, Influenza Type B (RT-PCR) NEGATIVE, Respiratory Syncytial Virus (PCR) NEGATIVE CBC/BMP Laboratory Tests 12/24/20 17:05 Microbiology Microbiology 12/24/20 Blood Culture, Received Pending 12/24/20 Blood Culture, Received Pending Assessment/Plan 70-year-old female with recent animal bite to right thumb 12-23-20 with subsequent erythema/swelling and limited range of motion of thumb and forefinger x1 day. X-ray nonacute for osseous abnormality. Ortho Dr. Perez consulted for further recommendations and he discussed with Dr. Mccarty (hand surgeon ) for a plan to admit for IV antibiotics and possible [facility] transfer (under Dr. Mccarty) should patient clinically worsen. 1. Right hand cellulitis secondary to cat bite: -Monitor for signs symptoms worsening infection -Empiric coverage with Unasyn. -Symptomatic/supportive care: Encourage extremity elevation -Analgesics as needed. -A.m. labs -Suggestion to consult ID for any specific recommendations given the animal bite 2. HTN: Monitor BP in setting of above. Patient reports a history of hypertension and having been on medication but taken off as diet and exercise controlled. She reports that she sees her doctor every 6 months to determine if she would need to be replaced on it. Patient has been hypertensive during admission with reported elevated pain level. Most recent blood pressure 180s systolically. -Will place her as needed medication with parameters in setting of infection. Consider discharge antihypertensives pending patient response. DVT prophylaxis: Yoseph score 1; plan for sequentials and early ambulation CODE STATUS: Full code Disposition planning: Anticipate 2 midnights Plan / VTE VTE Prophylaxis Ordered?: Yes FLORENCIA LEO NP Dec 24, 2020 23:19
[2020-12-25 00:20] VITALS: BP 172/90
[2020-12-25] MEDS: AMPICILLIN SOD/SULBACTAM SOD 3 GM in D5W MINI-BAG PLUS 100 ML IV SCH ×4 (01:14→18:01)
[2020-12-25 06:00] VITALS: BP 162/79
[2020-12-25 08:11] LABS: BASO % 0.2 % (0.0-1.0); EOS # 0.1 10^3/uL (0.0-0.5); EOS % 1.7 % (0.0-3.0); HEMATOCRIT 35.7 % (36.0-47.0); HEMOGLOBIN 11.8 g/dl (12.0-15.5); LYMPH # 1.5 10^3/uL (1.5-5.0); LYMPH % 33.2 % (24.0-44.0); MEAN CORPUSCULAR HEMOGLOBIN 31.3 pg (27.0-33.0); MEAN CORPUSCULAR HGB CONC 33.1 g/dl (32.0-36.5); MEAN CORPUSCULAR VOLUME 94.7 fl (80.0-96.0); MONO # 0.5 10^3/uL (0.0-0.8); MONO % 10.8 % (2.0-8.0); NEUTROPHILS # 2.5 10^3/uL (1.5-8.5); NEUTROPHILS % 53.7 % (36.0-66.0); PLATELET COUNT, AUTOMATED 262 10^3/uL (150-450); RED BLOOD COUNT 3.77 10^6/uL (4.00-5.40); WHITE BLOOD COUNT 4.6 10^3/uL (4.0-10.0)
[2020-12-25] MEDS: MULTIVITAMINS/MINERALS THERAP 1 TAB PO SCH (08:12)
[2020-12-25] MEDS: OMEGA-3 1000MG CAPSULE PO SCH (08:13)
[2020-12-25] MEDS: prednisoLONE ACET 1% OPHTH SUSP 5ML OS SCH (08:13)
[2020-12-25] MEDS: LACTOBACILLUS ACIDOPHILUS CAP (BACID) PO SCH ×2 (08:13→18:01)
[2020-12-25] MEDS: PERCOCET 5MG/325MG TAB PO PRN ×2 (08:29)
[2020-12-25 08:30] LABS: BLOOD UREA NITROGEN 11 MG/DL (7-18); CALCIUM LEVEL 9.3 MG/DL (8.8-10.2); CARBON DIOXIDE LEVEL 27 MEQ/L (21-32); CHLORIDE LEVEL 105 MEQ/L (98-107); CREATININE FOR GFR 0.59 MG/DL (0.55-1.30); GLOMERULAR FILTRATION RATE > 60.0 (>45); GLUCOSE, FASTING 96 MG/DL (70-100); POTASSIUM SERUM 3.7 MEQ/L (3.5-5.1); SODIUM LEVEL 139 MEQ/L (136-145)
[2020-12-25] MEDS ORDERED: CARVedilol 3.125 MG TAB PO SCH (09:00)
[2020-12-25 14:00] VITALS: BP 159/87
--- NOTE | 2020-12-25 16:21 | IPNPDOC ---
Text Note Date of Service The patient was seen on 12/25/20. NOTE Subjective: Patient is a 62-year-old female with a PMHx of HTN, Dry eyes, who presented to the ER with right hand pain. Patient had reported that that she was bitten by her cat on 12/23. Patient has reported that since then her thumb has become red, swollen and throbbing in pain with difficulty moving her thumb. Orthopedic surgery was called to evaluate patient in the ER; they have discussed the case with hand surgery at [facility]. It was decided that patient would be admitted to the hospitalist service for IV antibiotic therapy and if no imp rovement was noted patient would be transferred to [place]. Infectious disease was called on consultation. Patient was seen and examined at the bedside. Currently patient reports that her pain has had a significant improvement. Redness has receded from the demarcation lines. She is able to move her thumb better today. Patient denies any nausea, vomiting, chest pain, shortness of breath, palpitations, abdominal pain, diarrhea, or urinary discomfort. Objective: Vitals (See below) General: Lying in bed, no acute distress, comfortable, AAOx3 HEENT: NC, AT CVS: RRR, +S1S2 Lungs: Fair air entry b/l, -w/r/r Abdomen: Soft, ND, NT Extremities: - Edema, - Calf tenderness Hand: Right hand with regression of erythema from demarcation lines, 2 puncture wounds noted without any significant drainage; some range of motion noted of thumb Imaging: XR R hand 12/24: No acute osseous abnormality. Assessment and plan: Right hand cellulitis - likely 2/2 cat bite - Clinically patient has reported improvement of her right hand - Regression of erythema - No significant leukocytosis - CRP remains elevated - Imaging noted above - c/w Unasyn - Orthopedic surgery; Dr. Martell on consult; has discussed with Dr. Mccarty (Hand surgeon at [place]) - ID has been called on consultation HTN - Patient's blood pressure seems to be hypertensive - She notes that she is diet and exercise controlled - However, given her blood pressure elevation, will start carvedilol DVT prophylaxis - c/w Heparin SQ Disposition: - Awaiting clinical improvement / ID input VS,Francois, I+O VS, Francois, I+O Laboratory Tests 12/24/20 17:05 12/25/20 07:32 Vital Signs Date Time Temp Pulse Resp B/P (MAP) Pulse Ox O2 Delivery O2 Flow Rate FiO2 12/25/20 14:00 98.0 80 18 159/87 (111) 95 Room Air I&O- Last 24 Hours up to 6 AM 12/25/20 06:00 Intake Total 100 ml Output Total 0 ml Balance 100 ml SIL CONNOLLY MD Dec 25, 2020 16:21
[2020-12-25] MEDS: ACETAMINOPHEN TAB 650MG DOSE (2X325MG) PO PRN (18:24)
--- NOTE | 2020-12-25 18:41 | IPNPDOC ---
Text Note Date of Service The patient was seen on 12/25/20. NOTE Interval update: - ID had called me to inform me that they are suspicious for possible septic arthritis - They have ordered an MRI of the hand - I have called and discussed the case directly with Dr. Mccarty, Hand surgeon at [facility] (Called transfer center at [phone]) - He has suggested that the MRI will show a multitude of different differentials including septic arthritis - Recommended continuing antibiotics at this time and no further intervention if patient continues to clinically improve - Will call Dr. Mccarty tomorrow with further updates VS,Francois, I+O VS, Wendiee, I+O Laboratory Tests 12/25/20 07:32 Vital Signs Date Time Temp Pulse Resp B/P (MAP) Pulse Ox O2 Delivery O2 Flow Rate FiO2 12/25/20 14:00 98.0 80 18 159/87 (111) 95 Room Air I&O- Last 24 Hours up to 6 AM 12/25/20 06:00 Intake Total 100 ml Output Total 0 ml Balance 100 ml SIL CONNOLLY MD Dec 25, 2020 18:41
--- NOTE | 2020-12-25 20:57 | CR.PDOC ---
General Date of Consultation: Dec 25, 2020 Attending Physician: Caroline Ortiz MD Consultation REASON FOR INFECTIOUS DISEASE CONSULTATION: Cat bite and R cellulitis of hand HISTORY OF PRESENT ILLNESS: Patient is a 70 year old female who presents to [facility] ER with cc of a cat bite on her R hand. Patient came home on Tuesday afternoon and noticed that her cat is howling and she went over to her and picked her up and thats when she noticed the cats leg is broken and at that point, the cat bit her R hand just above he MCP of her thumb and did not let go of it. She tried to drop the cat however, the cats teeth sunk in deep and did not let go. When she did get the cat off of her, she reports rinsing the wound with soap and water and put antibiotic oinment and a bandaid over it. She denies any dirt in the wound but does report profuse bleeding from the site. When she re-checked on the cat a few minutes later, the cat was . Her partner brought the cat to the vet for proper testing and the office called the department of health for further notification of this case. When asked if the cat is properly vaccina ori, she states that she is mostly an outdoor cat and hunts wild animals, including chipmunks. The cat barely goes into the house and only seldomly go into the house to eat and drink water so shes not vaccinated and have not ever gotten the rabies vaccine. She reports profuse bleed from the site and that erythema started to spread upwards toward her forearm and became more swollen and erythematous early the next morning and she decided to report to the ER to get further assessed. In the ER, Orthopedic surgery was called to evaluate patient in the ER and they discussed the case with hand surgeon at [facility]. It was decided that patient would be admitted to the hospitalist service for IV antibiotic therapy and if no improvement was noted patient would be transferred to [place]. She did receive a tetanus shot in the ER. Infectious disease was consulted for further management of R hand cellulitis. ALLERGIES: Please see below. PAST MEDICAL HISTORY: HTN- not on meds currently and being controlled with lifestyle modifications PAST SURGICAL HISTORY: Carpal tunnel surgery FAMILY HISTORY: Mother: 78 y.o- carotid stenosis s/p endarectomy and from an unspecified fall and life threatening bleed. Father: , 92. Prostate ca, HNT, DM2 1 daughter: HTN. SOCIAL HISTORY: Used to be a hairdresser, now works as in the housekeeping industry Never tobacco use; occasional ETOH use; denies illicit drug use. Pt has 1 family dog REVIEW OF SYSTEMS: GENERAL: Denies fever, shaking chills or unintentional weight HEENT: Denies changes in vision including blurry vision or double vision, or hearing loss nasal congestion or sore throat, or dysphagia or odynophagia HEART: Denies chest pain or chest pressure or discomfort, or palpitations, or lower extremity edema PULM: Denies cough or sputum production, shortness of breath, PND, or orthopnea PSYCH: Denies sadness or loss of interest in doing things, no thoughts of self- harm or suicidal ideation SKIN: Throbbing pain at site of cat bite on R thumb. Denies loss of sensation or sharp or shooting pain in the area. Increased redness spreading upwards toward her forearm a few hours after the bite. PHYSICAL EXAMINATION: VITAL SIGNS: Please see below. General: Pleasant elderly female, who appears younger than stated age, laying in bed without any acute distress. AAOx3 NEURO: no focal neuro deficits HEENT: Oral and nasal mucosae are pink and moist without lesions. Oropharynx without erythema or exudate. NECK/LYMPH: No tracheal deviation, stridor, no significant adenopathy in cervical, axillary, post auricular regions. CARDIO: The heart has a regular S1 and S2 without appreciable murmur, rub or gallop. PMI is nondisplaced. No peripheral nonpitting or pitting edema PULMONARY: Clear on auscultation. The chest is symmetric and there is no accessory muscle use. ABDOMEN: The abdomen is soft and nontender with normal active bowel sounds. There is no palpable mass or hepatosplenomegaly. There is no bruit over the large vessels of the abdomen. EXTREMITIES/SKIN: Peripheral pulses are palpable at radial and dorsalis pedis bilaterally. locations and symmetric.No clubbing of nails appreciated. Her R thumb has 2 spots with pus bubble with teeth yusuf from the bite. There's warmth and significant erythema and swelling around the site with erythema spreading up her forearms. There's decreased in erythema compared to the original marker marked spot when she presented to the ER. Flexor and extensor tendons of each digit were checked on her R hand and she is able to move all, although there's slight reduced ROM of her thumb due to the swelling. no lymphangitis or axillary adenopathy LABORATORY DATA: Please see below. MICROBIOLOGY: Wound culture and gram stain sent. pending results Blood culture x2 negative IMAGING: MRI without ctx of R hand ordered- pending XR R hand IMPRESSION: No acute osseous abnormality IMPRESSION AND PLAN: Cat bite and soft tissue cellulitis- There's a concern that with the significant swelling and erythema and the depth of the bite that there's septic arthritis of the MCP joint of her R thumb/ tenosynovitis or abscess. There's pus draining from the bite wounds and with sterile technique, a scapel was used to superfici ally open up the pus pocket for further drainage at bedside. Recommend MRI of R hand. Certainly with how fast the erythema and swelling spread from the site of the bites, Pasteurella multocida infection is the most likely pathogen. Will recommend a culture and gram stain of the wound. Agree with IV Unasyn at this time, will review MRI hand Since the cat is feral and mostly outdoors and not vaccinated and up to date with rabies vaccine, department of health was contacted again and recommended to keep in touch with the vet for results of rabies testing from the animal. If positive, patient will need to start immediately on rabies immune globulin and receive series of rabies vaccine. I Case DW Dr Monteiro Thank you for this consultation. Vital Signs/I&O Vital Signs Date Time Temp Pulse Resp B/P (MAP) Pulse Ox O2 Delivery O2 Flow Rate FiO2 12/25/20 14:00 98.0 80 18 159/87 (111) 95 Room Air I&O- Last 24 Hours up to 6 AM 12/25/20 06:00 Intake Total 100 ml Output Total 0 ml Balance 100 ml Laboratory Data Labs 24H Laboratory Tests 2 12/24/20 21:50: Coronavirus (COVID-19)(PCR) NEGATIVE, Influenza Type A (RT-PCR) NEGATIVE, Influenza Type B (RT-PCR) NEGATIVE, Respiratory Syncytial Virus (PCR) NEGATIVE 12/25/20 07:32: Immature Granulocyte % (Auto) 0.4, Neutrophils (%) (Auto) 53.7, Lymphocytes (%) (Auto) 33.2, Monocytes (%) (Auto) 10.8H, Eosinophils (%) (Auto) 1.7, Basophils (%) (Auto) 0.2, Neutrophils # (Auto) 2.5, Lymphocytes # (Auto) 1.5, Monocytes # (Auto) 0.5, Eosinophils # (Auto) 0.1, Basophils # (Auto) 0.0, Nucleated Red Blood Cells % (auto) 0.0, Anion Gap 7L, Glomerular Filtration Rate > 60.0, Calcium Level 9.3, C-Reactive Protein, Quantitative 7.14H 12/25/20 08:17: Methicillin-Resist S.aureus DNA PCR NOT DETECTED CBC/BMP Laboratory Tests 12/25/20 07:32 Microbiology Microbiology 12/25/20 Gram Stain - Final, Resulted 12/25/20 Wound Culture, Resulted Pending 12/24/20 Blood Culture - Preliminary, Resulted No growth after 24 hours . All specim... 12/24/20 Blood Culture - Preliminary, Resulted No growth after 24 hours . All specim... Allergies Coded Allergies: No Known Allergies (Unverified , 12/24/20) Home Medications Scheduled Amoxicillin/Potassium Clav (Augmentin 875-125 Tablet) 1 Each Tablet, 1 TAB PO BID for 10 Days, #20 Carvedilol (Carvedilol) 12.5 Mg Tablet, 1 TAB PO BID for 30 Days, #60 Cyclosporine (Restasis) 0.05% Droperette, 1 DROP OU BID, (Reported) L.acidoph/L.bulg/B.bif/S.therm ([place]-Bid Caplet) 1 Each Tablet, 1 EA PO BIDWM f or 10 Days, #20 Multivitamins (Thera M Plus Tablet) 1 Each Tablet, 1 TAB PO DAILY, (Reported) [place]-3/Dha/Epa/Fish Oil ([place]-3 Fish Oil 1,000 mg Sfgl) 1,000 Mg Capsule, 1 CAP PO DAILY, (Reported) Prednisolone Acetate (Prednisolone Acetate 1% Opth Susp) 5 Ml Drops.susp, 1 DROP OS DAILY, (Reported) Scheduled PRN Acetaminophen (Tylenol) 325 Mg Tablet, 650 MG PO Q4H PRN for MILD PAIN (PS 1-4), (Reported) GME ATTESTATION GME ATTESTATION My faculty preceptor for this patient encounter was physically present during the encounter and was fully available. All aspects of the patient interview, examination, medical decision making process, and medical care plan development were reviewed and approved by the faculty preceptor. The faculty preceptor is aware and concurs with the plan as stated in the body of this note and will attest to such by his/her cosignature. Gab Maddox DO Dec 25, 2020 20:53 Caroline Ortiz MD Dec 26, 2020 13:15
[2020-12-25] MEDS: CARVedilol 6.25 MG TAB PO SCH (21:05)
[2020-12-25] MEDS: HEPARIN SOD (PORCINE) 5000UNITS/ML 1ML VIAL/SYRINGE SQ SCH ×2 (21:06→22:00)
[2020-12-25 22:00] VITALS: BP 159/77
[2020-12-25] MEDS ORDERED: PROHANCE 279.3MG/ML 15ML VIAL As Ordered ONE (22:43)
[2020-12-26] MEDS: ACETAMINOPHEN TAB 650MG DOSE (2X325MG) PO PRN ×2 (01:06→08:07)
[2020-12-26] MEDS: AMPICILLIN SOD/SULBACTAM SOD 3 GM in D5W MINI-BAG PLUS 100 ML IV SCH ×2 (01:07→06:19)
[2020-12-26 04:55] LABS: BASO % 0.5 % (0.0-1.0); EOS # 0.1 10^3/uL (0.0-0.5); EOS % 1.8 % (0.0-3.0); HEMATOCRIT 34.1 % (36.0-47.0); HEMOGLOBIN 11.2 g/dl (12.0-15.5); LYMPH # 1.8 10^3/uL (1.5-5.0); MEAN CORPUSCULAR HEMOGLOBIN 31.7 pg (27.0-33.0); MEAN CORPUSCULAR HGB CONC 32.8 g/dl (32.0-36.5); MEAN CORPUSCULAR VOLUME 96.6 fl (80.0-96.0); MONO # 0.6 10^3/uL (0.0-0.8); MONO % 13.9 % (2.0-8.0); NEUTROPHILS # 1.9 10^3/uL (1.5-8.5); NEUTROPHILS % 43.6 % (36.0-66.0); PLATELET COUNT, AUTOMATED 266 10^3/uL (150-450); RED BLOOD COUNT 3.53 10^6/uL (4.00-5.40); WHITE BLOOD COUNT 4.4 10^3/uL (4.0-10.0)
[2020-12-26] MEDS: HEPARIN SOD (PORCINE) 5000UNITS/ML 1ML VIAL/SYRINGE SQ SCH (05:13)
[2020-12-26 05:20] LABS: BLOOD UREA NITROGEN 12 MG/DL (7-18); C REACTIVE PROTEIN QUANTITATIV 4.94 MG/DL (0.00-0.30); CALCIUM LEVEL 9.1 MG/DL (8.8-10.2); CARBON DIOXIDE LEVEL 28 MEQ/L (21-32); CHLORIDE LEVEL 107 MEQ/L (98-107); CREATININE FOR GFR 0.65 MG/DL (0.55-1.30); GLOMERULAR FILTRATION RATE > 60.0 (>45); GLUCOSE, FASTING 108 MG/DL (70-100); SODIUM LEVEL 142 MEQ/L (136-145)
[2020-12-26 06:00] VITALS: BP 165/83
[2020-12-26 08:06] VITALS: BP 160/84
[2020-12-26] MEDS: LACTOBACILLUS ACIDOPHILUS CAP (BACID) PO SCH (08:06)
[2020-12-26] MEDS: CARVedilol 6.25 MG TAB PO SCH (08:06)
[2020-12-26] MEDS: OMEGA-3 1000MG CAPSULE PO SCH (08:07)
[2020-12-26] MEDS: MULTIVITAMINS/MINERALS THERAP 1 TAB PO SCH (08:07)
[2020-12-26] MEDS: prednisoLONE ACET 1% OPHTH SUSP 5ML OS SCH (08:09)
--- NOTE | 2020-12-26 08:34 | REPVR ---
PROCEDURE INFORMATION: Exam: MR Right Upper Extremity Other Than Joint Without and With Contrast; Hand Exam date and time: 12/25/2020 10:31 PM Age: 70 years old Clinical indication: Injury or trauma; Other: Bite; Swelling; Hand; Right; Injury date: 12/18/20; Additional info: Cat bite, R hand cellulitis. R/O septic arthritis, osteomyel TECHNIQUE: Imaging protocol: MR of the Right upper extremity without and with intravenous contrast. Exam focused on the hand. Contrast material: PROHANCE; Contrast volume: 14 ml; Contrast route: INTRAVENOUS (IV); COMPARISON: CR Hand, complete 12/24/2020 4:28 PM FINDINGS: Bones and cartilage: There is some field inhomogeneity affecting the signal of the bones but no signal abnormalities of the bones or abnormal enhancement of the bones are seen to indicate osteomyelitis. There is an ossicle adjacent to the ulnar styloid process which may be an accessory ossicle or a chronic ununited fracture. Joint spaces: Osteophytes and subchondral signal changes are seen at multiple joints in the hand and wrist, corresponding with osteoarthritic changes seen on the x-ray. There are no significant joint effusions. Collateral ligaments of digits: The medial and lateral collateral ligaments are grossly intact. Flexor compartment tendons: There is thickening and increased signal of the flexor tendons of the middle and 4th fingers in the proximal aspect of the middle finger and in the distal hand and proximal aspect of the 4th finger. There is mild hyperenhancement of the synovium for the flexor tendons in the 2nd through 4th fingers. Extensor compartment tendons: The extensor tendons are intact the fingers and through the hand and wrist. There is a small amount of fluid and hyperenhancement of the synovium of the extensor tendons diffusely in the hand and wrist. Muscles: The musculature appears unremarkable. Soft tissues: There is extensive soft tissue swelling and edema across the dorsum of the hand extending to the wrist and into the thumb and proximal aspects of the index finger and middle finger. There is no evidence of focal fluid collections to suggest abscess formation. IMPRESSION: 1. Prominent dorsal soft tissue swelling and edema in the hand, extending into the thumb and proximal aspects of the index and middle fingers, consistent with the given history of cellulitis. No focal fluid collections identified. 2. No significant joint effusions or evidence of osteomyelitis. 3. A small amount of fluid in the extensor tendon sheaths and hyperenhancement of the synovium of the extensor tendons through the hand and wrist, which may be secondarily inflamed, not necessarily infected. 4. Thickening and mild increased signal of the flexor tendons in the 3rd and 4th fingers, most consistent with tendinopathy. Electronically signed by: Sujata Loomis On 12/26/2020 08:33:37 AM
[2020-12-26] MEDS ORDERED: AUGM875T28 PO ×2 (10:47→11:12)
[2020-12-26] MEDS ORDERED: CARV12.5 PO (10:47)
[2020-12-26] MEDS ORDERED: RISATAB3 PO (10:47)
--- NOTE | 2020-12-26 11:34 | DS.PDOC ---
Discharge Summary General Date of Admission Dec 24, 2020 at 23:21 Date of Discharge 12/26/2020 Discharge Summary PROCEDURES PERFORMED DURING STAY: [None]. ADMITTING DIAGNOSES / DISCHARGE DIAGNOSES: Right hand cellulitis - likely 2/2 cat bite HTN DVT prophylaxis COMPLICATIONS/CHIEF COMPLAINT: R hand pain HISTORY OF PRESENT ILLNESS: Patient is a 62-year-old female with a PMHx of HTN, Dry eyes, who presented to the ER with right hand pain. Patient had reported that that she was bitten by her cat on 12/23. Patient has reported that since then her thumb has become red, swollen and throbbing in pain with difficulty moving her thumb. Orthopedic surgery was called to evaluate patient in the ER; they have discussed the case with hand surgery at [facility]. It was decided that patient wou ld be admitted to the hospitalist service for IV antibiotic therapy and if no improvement was noted patient would be transferred to [facility]. Infectious disease was called on consultation. Patient was seen and examined at the bedside. Currently patient reports that her pain has had a significant improvement. Redness has receded from the demarcation lines. She is able to move her thumb better today. Patient denies any nausea, vomiting, chest pain, shortness of breath, palpitations, abdominal pain, diarrhea, or urinary discomfort. HOSPITAL COURSE: Right hand cellulitis - likely 2/2 cat bite - Patient continues to experience improvement of her right hand redness, warmth, swelling and improved range of motion - No Leukocytosis / CRP improving - Imaging noted below - Will start Augmentin on discharge for completion of antibiotic course; Will DC Unasyn - Orthopedic surgery; Dr. Pearl-Pack on consult; has discussed with Dr. Mccarty (Hand surgeon at [facility]) - Discussed the case with Dr. Mccarty yesterday and provided him with updates on plan of care - ID on consultation; appreciate their input - Will have outpatient follow-up with primary care provider and infectious disease within the next 7 days HTN - Patient's blood pressure has had some improvement - Patient reported that she is diet and exercised controlled as an outpatient - Was been started on carvedilol - c/w Carvedilol - Will have outpatient follow-up with primary care provider within the next 7 days DVT prophylaxis - c/w Heparin SQ DISCHARGE MEDICATIONS: Please see below. ALLERGIES: Please see below. PHYSICAL EXAMINATION ON DISCHARGE: Vitals (See below) General: Lying in bed, appears comfortable, AAOx3 HEENT: NC, AT CVS: +S1S2 Lungs: Fair air entry b/l, no evidence of wheezing, rales or rhonchi Abdomen: Soft, nondistended, nontender Extremities: No lower extremity edema Hand: R and with improvement of erythema, increased range of motion. No significant drainage reduction of swelling LABORATORY DATA: Please see below. IMAGING: XR R hand 12/24: No acute osseous abnormality. MRI R hand 12/25: 1. Prominent dorsal soft tissue swelling and edema in the hand, extending into the thumb and proximal aspects of the index and middle fingers, consistent with the given history of cellulitis. No focal fluid collections identified. 2. No significant joint effusions or evidence of osteomyelitis. 3. A small amount of fluid in the extensor tendon sheaths and hyperenhancement of the synovium of the extensor tendons through the hand and wrist, which may be secondarily inflamed, not necessarily infected. 4. Thickening and mild increased signal of the flexor tendons in the 3rd and 4th fingers, most consistent with tendinopathy. ACTIVITY: [As tolerated]. DISCHARGE PLAN: Follow-up with her care provider and infectious disease within the next 7 days Remain compliant with treatment plan and medications Return to the ER if you experience any problems DISPOSITION: Home with services DISCHARGE CONDITION: [Stable]. TIME SPENT ON DISCHARGE: 35 minutes. Vital Signs/I&Os Vital Signs Date Time Temp Pulse Resp B/P (MAP) Pulse Ox O2 Delivery O2 Flow Rate FiO2 12/26/20 08:06 76 160/84 12/26/20 06:00 98.2 18 97 Room Air I&O- Last 24 Hours up to 6 AM 12/26/20 06:00 Intake Total 1300 ml Output Total 0 ml Balance 1300 ml Laboratory Data Labs 24H Laboratory Tests 2 12/26/20 04:24: Immature Granulocyte % (Auto) 0.2, Neutrophils (%) (Auto) 43.6, Lymphocytes (%) (Auto) 40.0, Monocytes (%) (Auto) 13.9H, Eosinophils (%) (Auto) 1.8, Basophils (%) (Auto) 0.5, Neutrophils # (Auto) 1.9, Lymphocytes # (Auto) 1.8, Monocytes # (Auto) 0.6, Eosinophils # (Auto) 0.1, Basophils # (Auto) 0.0, Nucleated Red Blood Cells % (auto) 0.0, Anion Gap 7L, Glomerular Filtration Rate > 60.0, Calcium Level 9.1, C-Reactive Protein, Quantitative 4.94H CBC/BMP Laboratory Tests 12/26/20 04:24 Microbiology Microbiology 12/25/20 Gram Stain - Final, Resulted 12/25/20 Wound Culture, Resulted Pending 12/24/20 Blood Culture - Preliminary, Resulted No growth after 24 hours . All specim... 12/24/20 Blood Culture - Preliminary, Resulted No growth after 24 hours . All specim... Discharge Medications Scheduled Amoxicillin/Potassium Clav (Augmentin 875-125 Tablet) 1 Each Tablet, 1 TAB PO BID Carvedilol (Carvedilol) 12.5 Mg Tablet, 1 TAB PO BID Cyclosporine (Restasis) 0.05% Droperette, 1 DROP OU BID, (Reported) L.acidoph/L.bulg/B.bif/S.therm (Meredith-Bid Caplet) 1 Each Tablet, 1 EA PO BIDWM Multivitamins (Thera M Plus Tablet) 1 Each Tablet, 1 TAB PO DAILY, (Reported) [place]-3/Dha/Epa/Fish Oil ([place]-3 Fish Oil 1,000 mg Sfgl) 1,000 Mg Capsule, 1 CAP PO DAILY, (Reported) Prednisolone Acetate (Prednisolone Acetate 1% Opth Susp) 5 Ml Drops.susp, 1 DROP OS DAILY, (Reported) Scheduled PRN Acetaminophen (Tylenol) 325 Mg Tablet, 650 MG PO Q4H PRN for MILD PAIN (PS 1-4), (Reported) Allergies Coded Allergies: No Known Allergies (Unverified , 12/24/20) SIL CONNOLLY MD Dec 26, 2020 11:34
--- NOTE | 2020-12-26 13:04 | IPN ---
PROGRESS NOTE DATE: 12/26/2020 Alise seems to be doing great today. She has more movement of her right thumb. She states the pain has markedly decreased. She has no fever or chills. No nausea, vomiting, or diarrhea. She is currently day #3 of intravenous (IV) Unasyn. Microbiology was reviewed with the lab, and she is growing Pasteurella. LABORATORY DATA: White count 4.4, hemoglobin 11.2, hematocrit 34.1, platelets 266, ESR 28. Sodium 142, potassium 4, chloride 107, bicarbonate 28, BUN 12, creatinine 0.65, glucose 108, calcium 9.1. CRP 4.94. Blood cultures, two sets, are no growth after 24 hours. Wound culture is probably Pasteurella. IMAGING STUDIES: MRI of the hand shows prominent dorsal soft tissue swelling and edema in the hand, extending into the thumb and proximal aspect of the index and middle fingers, consistent with cellulitis. No fluid collections identified. No joint effusion or evidence of osteomyelitis. A small amount of fluid in the extensor tendon sheath and hyperenhancement of the synovium of the extensor tendon through the hand and wrist, inflammation, not necessarily infection. There is no evidence of osteomyelitis. PHYSICAL EXAMINATION: Temperature is 98.2, pulse 68, respirations 18, blood pressure 160/84, oxygen saturation 97% on room air. HEART: Normal S1, S2. No murmurs. LUNGS: Clear. No wheezes, rales, or rhonchi. ABDOMEN: Soft, nontender. Right hand swelling has decreased. The two areas where the bite occurred are dry. There is no purulent discharge today. Patient is able to close her hand and make a fist. She is able to move her thumb in all directions in spite of slight pain. IMPRESSION: 1. Cat bite with secondary Pasteurella infection and cellulitis of the right hand, markedly improved. There is no evidence of septic arthritis or osteomyelitis. 2. Hypertension. Patient is on Coreg. PLAN: Patient could be discharged home on Augmentin 875 mg by mouth twice a day for 10 days. Continue for a total of another 10 days of Augmentin in case she has a mild tenosynovitis. Patient could followup with her primary care provider in 7-10 days. Patient was also advised to call public health to followup on possible need for rabies immunoglobulin and vaccine. The cat has been sent to the vet, and the vet has sent out the cat for testing for rabies, and the results will be available probably in the next 2-3 days. I asked the patient to followup with her vet and public health, and, if need be, the rabies treatment will be at public health. Patient understands instructions.
== END 2020-12-26 11:33 | disposition home health service (06) | DRG 605 ==
LOC: M ED 13:04 → M ED INP 22:54 → OBSVTOIN 23:21 → M MSPAV 12-25 00:13
PROVIDERS: ADMIT Family Medicine; ATTEND Internal Medicine
DX: S61.031A Puncture wound without foreign body of right thumb without damage to nail, initial encounter (principal); A28.0 Pasteurellosis; L03.116 Cellulitis of left lower limb; I10 Essential (primary) hypertension; Z79.899 Other long term (current) drug therapy; H04.123 Dry eye syndrome of bilateral lacrimal glands; Z20.822 Contact with and (suspected) exposure to COVID-19; W55.01XA Bitten by cat, initial encounter; Y92.009 Unspecified place in unspecified non-institutional (private) residence as the place of occurrence of the external cause; Y93.89 Activity, other specified; Y99.8 Other external cause status

== ENCOUNTER → 2021-07-28 | Outpatient (REF) | payer OTHER, MEDICAID ==
[~2021-07-28] MED LIST: ACET-907 PO; AUGM875T28 PO; CARV12.5 PO; CURCPOW PO; OMEGCAP4 PO; PREDOPD OS; REST0.05; REST0.05 OU; RISATAB3 PO; VITMTA PO
[2021-07-28 17:23] LABS: BLOOD UREA NITROGEN 16 MG/DL (7-18); CALCIUM LEVEL 10.7 MG/DL (8.8-10.2); CARBON DIOXIDE LEVEL 27 MEQ/L (21-32); CHLORIDE LEVEL 105 MEQ/L (98-107); GLOMERULAR FILTRATION RATE > 60.0 (>45); GLUCOSE, FASTING 108 MG/DL (70-100); IRON (FE) 107 UG/DL (50-170); MAGNESIUM LEVEL 2.3 MG/DL (1.8-2.4); PHOSPHORUS LEVEL 3.8 MG/DL (2.5-4.9); POTASSIUM SERUM 4.5 MEQ/L (3.5-5.1); SODIUM LEVEL 139 MEQ/L (136-145)
[2021-07-28 17:31] LABS: TOTAL 25(OH) VITAMIN D 25.1 NG/ML (30.0-100.0); VITAMIN B12 LEVEL 617 PG/ML (247-911)
[2021-07-31 20:16] LABS: ANCA-ATYPICAL <1:20 titer (Neg:<1:20); CYTOPLASMIC NEUTROP AB ANCA-C <1:20 titer (Neg:<1:20); EBV AB TO NUCLEAR ANTIGEN >600.0 U/mL (0.0-17.9); EBV VIRAL CAPSID AG IgG >600.0 U/mL (0.0-17.9); EBV VIRAL CAPSID AG IgM <36.0 U/mL (0.0-35.9); HSV IgM TYPES 1&2 <0.91 Ratio (0.00-0.90); PERINUCLEAR AB ANCA-P <1:20 titer (Neg:<1:20)
== END ==
LOC: M SFHCRHEU 10:27
PROVIDERS: ATTEND Internal Medicine
DX: H20.9 Unspecified iridocyclitis (principal); M79.10 Myalgia, unspecified site; Z79.899 Other long term (current) drug therapy

== ENCOUNTER → 2022-02-04 | Outpatient (CLI) | payer OTHER, MEDICAID | LOC: M RAD 07:52 | PROVIDERS: ATTEND Family Medicine | DX: M54.17 Radiculopathy, lumbosacral region (principal) ==

== ENCOUNTER → 2022-04-29 | Outpatient (REF) | payer OTHER, MEDICAID ==
[2022-04-29 11:28] LABS: BASO % 0.6 % (0.0-1.0); EOS # 0.1 10^3/uL (0.0-0.5); EOS % 0.9 % (0.0-3.0); HEMATOCRIT 38.4 % (36.0-47.0); HEMOGLOBIN 12.7 g/dl (12.0-15.5); LYMPH # 1.7 10^3/uL (1.5-5.0); LYMPH % 31.6 % (24.0-44.0); MEAN CORPUSCULAR HEMOGLOBIN 31.7 pg (27.0-33.0); MEAN CORPUSCULAR HGB CONC 33.1 g/dl (32.0-36.5); MEAN CORPUSCULAR VOLUME 95.8 fl (80.0-96.0); MONO # 0.4 10^3/uL (0.0-0.8); MONO % 8.2 % (2.0-8.0); NEUTROPHILS # 3.1 10^3/uL (1.5-8.5); NEUTROPHILS % 58.3 % (36.0-66.0); PLATELET COUNT, AUTOMATED 306 10^3/uL (150-450); RED BLOOD COUNT 4.01 10^6/uL (4.00-5.40); WHITE BLOOD COUNT 5.3 10^3/uL (4.0-10.0)
[2022-04-29 11:55] LABS: HEMOGLOBIN A1c 5.6 % (4.0-6.0)
[2022-04-29 12:02] LABS: ALBUMIN 4.3 G/DL (3.2-5.2); ALKALINE PHOSPHATASE 67 U/L (46-116); ALT/SGPT 32 U/L (7.0-40); AST/SGOT 23 U/L (<34); BILIRUBIN,TOTAL 0.4 MG/DL (0.3-1.2); BLOOD UREA NITROGEN 20 MG/DL (9-23); CALCIUM LEVEL 9.8 MG/DL (8.3-10.6); CARBON DIOXIDE LEVEL 26 MMOL/L (20-31); CHLORIDE LEVEL 102 MMOL/L (98-107); CHOLESTEROL LEVEL 249 MG/DL (<200); CHOLESTEROL RISK RATIO 3.52 (<5); CREATININE FOR GFR 0.53 MG/DL (0.55-1.30); GLOMERULAR FILTRATION RATE > 60.0 (>39); GLUCOSE, FASTING 105 MG/DL (74-106); HDL CHOLESTEROL 70.6 MG/DL (>40); LDL CHOLESTEROL 149.4 MG/DL (<100); NON-HDL-C 178.4 MG/DL; POTASSIUM SERUM 4.4 MMOL/L (3.5-5.1); SODIUM LEVEL 138 MMOL/L (136-145); TOTAL PROTEIN 7.3 G/DL (5.7-8.2); TRIGLYCERIDES LEVEL 145 MG/DL (<150)
[2022-04-29 12:03] LABS: FOLATE > 24.00 NG/ML (>5.4); VITAMIN B12 LEVEL 689 PG/ML (211-911)
== END ==
LOC: M SFHCCLAY 08:01
PROVIDERS: ATTEND Family Medicine
DX: R73.01 Impaired fasting glucose (principal); G62.9 Polyneuropathy, unspecified; E55.9 Vitamin D deficiency, unspecified; E78.2 Mixed hyperlipidemia; I10 Essential (primary) hypertension

== ENCOUNTER → 2022-08-10 | Outpatient (REF) | payer MEDICARE ==
[2022-08-10 18:18] LABS: THYROID STIMULATING HORMONE 0.897 uIU/ML (0.55-4.78)
[2022-08-10 18:20] LABS: FREE T4 1.13 NG/DL (0.89-1.76)
== END ==
LOC: M SFHCCLAY 09:53
PROVIDERS: ATTEND Physician Assistant
DX: R21 Rash and other nonspecific skin eruption (principal); E07.9 Disorder of thyroid, unspecified

== ENCOUNTER → 2022-12-16 | Outpatient (REF) | payer MEDICARE | LOC: M SFHCCLAY 16:30 | PROVIDERS: ATTEND Family Medicine | DX: S81.801D Unspecified open wound, right lower leg, subsequent encounter (principal) ==

== ENCOUNTER → 2022-12-16 | Outpatient (CLI) | payer MEDICARE | LOC: M CLY 15:53 | PROVIDERS: ATTEND Family Medicine | DX: S81.802D Unspecified open wound, left lower leg, subsequent encounter (principal); S81.801D Unspecified open wound, right lower leg, subsequent encounter ==

== ENCOUNTER → 2023-05-17 | Outpatient (REF) | payer MEDICARE ==
[2023-05-17 19:10] LABS: BASO % 0.2 % (0.0-1.0); EOS # 0.1 10^3/uL (0.0-0.5); EOS % 1.9 % (0.0-3.0); HEMATOCRIT 38.5 % (36.0-47.0); HEMOGLOBIN 12.6 g/dl (12.0-15.5); LYMPH # 1.9 10^3/uL (1.5-5.0); LYMPH % 41.7 % (24.0-44.0); MEAN CORPUSCULAR HEMOGLOBIN 31.1 pg (27.0-33.0); MEAN CORPUSCULAR HGB CONC 32.7 g/dl (32.0-36.5); MEAN CORPUSCULAR VOLUME 95.1 fl (80.0-96.0); MONO # 0.4 10^3/uL (0.0-0.8); NEUTROPHILS # 2.2 10^3/uL (1.5-8.5); PLATELET COUNT, AUTOMATED 322 10^3/uL (150-450); RED BLOOD COUNT 4.05 10^6/uL (4.00-5.40); WHITE BLOOD COUNT 4.7 10^3/uL (4.0-10.0)
[2023-05-17 19:29] LABS: HEMOGLOBIN A1c 5.6 % (4.0-6.0)
[2023-05-17 19:36] LABS: ALBUMIN 3.9 G/DL (3.2-5.2); ALKALINE PHOSPHATASE 63 U/L (46-116); ALT/SGPT 27 U/L (7.0-40); AST/SGOT 17 U/L (<34); BILIRUBIN,TOTAL 0.3 MG/DL (0.3-1.2); BLOOD UREA NITROGEN 19 MG/DL (9-23); CARBON DIOXIDE LEVEL 29 MMOL/L (20-31); CHLORIDE LEVEL 103 MMOL/L (98-107); CHOLESTEROL LEVEL 219 MG/DL (<200); CHOLESTEROL RISK RATIO 2.98 (<5); CREATININE FOR GFR 0.57 MG/DL (0.55-1.30); GLOMERULAR FILTRATION RATE > 60.0 (>39); GLUCOSE, FASTING 102 MG/DL (74-106); HDL CHOLESTEROL 73.3 MG/DL (>40); LDL CHOLESTEROL 122.7 MG/DL (<100); NON-HDL-C 145.7 MG/DL; POTASSIUM SERUM 4.2 MMOL/L (3.5-5.1); SODIUM LEVEL 137 MMOL/L (136-145); TOTAL PROTEIN 6.9 G/DL (5.7-8.2); TRIGLYCERIDES LEVEL 115 MG/DL (<150)
[2023-05-17 19:41] LABS: FOLATE > 24.00 NG/ML (>5.4); VITAMIN B12 LEVEL 589 PG/ML (211-911)
[2023-05-19 23:07] LABS: VITAMIN D 1,25 DIHYDROXY 51.9 pg/mL (24.8-81.5)
== END ==
LOC: M SFHCCLAY 10:18
PROVIDERS: ATTEND Family Medicine
DX: I10 Essential (primary) hypertension (principal); E78.2 Mixed hyperlipidemia; R73.01 Impaired fasting glucose; G62.9 Polyneuropathy, unspecified; E55.9 Vitamin D deficiency, unspecified; L20.9 Atopic dermatitis, unspecified

== ENCOUNTER → 2024-01-26 | Outpatient (CLI) | payer MEDICARE | LOC: M CLY 14:36 | PROVIDERS: ATTEND Family Medicine | DX: R00.2 Palpitations (principal) ==

== ENCOUNTER → 2024-01-26 | Outpatient (CLI) | payer MEDICARE | LOC: M CLY 14:49 | PROVIDERS: ATTEND Family Medicine | DX: R00.2 Palpitations (principal); Z53.9 Procedure and treatment not carried out, unspecified reason ==

== ENCOUNTER 2024-05-16 10:28 | Day surgery (SDC) | payer MEDICARE, MEDICAID ==
[~2024-05-16] VITALS: Ht 165.1 cm; Wt 64.4 kg
[~2024-05-16 10:28] MED LIST changes: +BUSP5TA PO; +MULTTAB61 PO; +TRIA1CR80
[2024-05-16] MEDS ORDERED: propofoL 200 MG/20 ML VIAL As Ordered ONE (12:25)
[2024-05-16] MEDS ORDERED: hydrALAZINE 20MG/ML 1ML VIAL As Ordered ONE (12:25)
[2024-05-16 12:36] VITALS: TEMP 97.1
[2024-05-16 12:52] VITALS: BP 166/79; O2SAT 100
== END 2024-05-16 12:59 | disposition home or self-care (01) ==
LOC: M OPP 10:28
PROVIDERS: ATTEND Surgery
DX: Z12.11 Encounter for screening for malignant neoplasm of colon (principal); R19.5 Other fecal abnormalities; D12.3 Benign neoplasm of transverse colon; K57.30 Diverticulosis of large intestine without perforation or abscess without bleeding; K64.0 First degree hemorrhoids; Z80.0 Family history of malignant neoplasm of digestive organs; Z88.2 Allergy status to sulfonamides; Z79.899 Other long term (current) drug therapy
CPT/HCPCS: 45385; 88305; J0360

== ENCOUNTER → 2024-09-13 | Outpatient (CLI) | payer MEDICARE | LOC: M PLARAD 11:50 | PROVIDERS: ATTEND Orthopaedic Surgery | DX: M47.892 Other spondylosis, cervical region (principal); M50.30 Other cervical disc degeneration, unspecified cervical region; M48.02 Spinal stenosis, cervical region ==

== ENCOUNTER 2024-11-24 17:58 | Emergency (ER) | payer MEDICARE, MEDICAID ==
[~2024-11-24] VITALS: Ht 165.1 cm; Wt 69.7 kg
[2024-11-24 18:17] VITALS: TEMP 97.4
[2024-11-24] MEDS: TETANUS/DIPHTH/ACEL. PERTUSSIS 0.5 ML SYR IM.IMMUN ONE (19:16)
[2024-11-24] MEDS: ACETAMINOPHEN 500 MG TAB PO ONE (20:18)
[2024-11-24 20:30] VITALS: BP 157/96; O2SAT 95
== END 2024-11-24 21:07 | disposition home or self-care (01) ==
LOC: M ED 17:58 → EDBD 17:58 → M ED 21:07
DX: F10.120 Alcohol abuse with intoxication, uncomplicated (principal); S00.03XA Contusion of scalp, initial encounter; Y92.9 Unspecified place or not applicable; Y93.9 Activity, unspecified; Y99.9 Unspecified external cause status; W01.198A Fall on same level from slipping, tripping and stumbling with subsequent striking against other object, initial encounter; M47.812 Spondylosis without myelopathy or radiculopathy, cervical region; E78.5 Hyperlipidemia, unspecified; Z23 Encounter for immunization; Z88.2 Allergy status to sulfonamides; Z79.1 Long term (current) use of non-steroidal anti-inflammatories (NSAID); Z79.899 Other long term (current) drug therapy; Z79.810 Long term (current) use of selective estrogen receptor modulators (SERMs)

== ENCOUNTER → 2025-01-28 | Outpatient (CLI) | payer MEDICARE | LOC: M CLY 10:51 | PROVIDERS: ATTEND Family Medicine | DX: M15.0 Primary generalized (osteo)arthritis (principal) ==

== ENCOUNTER → 2025-01-28 | Outpatient (CLI) | payer MEDICARE | LOC: M CLY 10:33 | PROVIDERS: ATTEND Family Medicine | DX: M15.0 Primary generalized (osteo)arthritis (principal); Z53.9 Procedure and treatment not carried out, unspecified reason ==